=== PATIENT | female | born 1955 | race Caucasian/White ===

== ENCOUNTER → 2017-01-06 | Outpatient (CLI) | payer MEDICARE, OTHER ==
[~2017-01-06] MED LIST: ACHD5005 PO; ASP81TEC PO; CALC-706 PO; CYAN10007 PO; DIPH25TA82 PO; ERGO400C PO; EST.625T PO; GEMF600T3 PO; HCT25T PO; HYDR-229 PO; KCL20TCR PO; LOVA40TA45 PO; MULT-608 PO; NF-PREM2.5 PO; OMEG-12 PO; OMEP20TA2 PO; OXYC-12 PO; [UNRECOGNIZED DRUG - CODE] PO
--- NOTE | 2017-01-06 15:44 | Diagnostic Imaging Report ---
EXAMINATION: Three views of the right shoulder. INDICATION: Right shoulder pain. FINDINGS: No fracture, dislocation, or radiopaque foreign body. The acromioclavicular joint demonstrates mild superior osteophytes. No significant inferior osteophytes. The glenohumeral joint appears unremarkable. IMPRESSION: Mild degenerative change in the AC joint with no significant inferior osteophytes. Dictated by: Dictated on workstation # [id number]
== END ==
LOC: RAD 15:13
PROVIDERS: ATTEND Nurse Practitioner Family
DX: M25.511 Pain in right shoulder (principal)
CPT/HCPCS: 73030

== ENCOUNTER → 2017-06-10 | Outpatient (CLI) | payer OTHER ==
--- NOTE | 2017-06-11 19:12 | Diagnostic Imaging Report ---
Bilateral screening mammogram 2D views with tomosynthesis The current study was also evaluated with a Computer Aided Detection (CAD) system. Indication: Screening. No current complaints stated on the questionnaire. COMPARISON: 06/16/16 FINDINGS: The breasts are composed of heterogeneously dense parenchyma which may decrease mammographic sensitivity. Allowing for technique and positional differences, no suspicious change is seen. IMPRESSION: Dense breasts with no definite change. ACR BI-RADS Category 2: Benign findings. Result letter will be mailed to the patient. Note: At least 10% of breast cancer is not imaged by mammography. Dictated by: Dictated on workstation # [id number]
== END ==
LOC: RAD 14:30
PROVIDERS: ATTEND Nurse Practitioner Family
DX: Z12.31 Encounter for screening mammogram for malignant neoplasm of breast (principal)
CPT/HCPCS: 77067

== ENCOUNTER 2019-02-21 15:29 | Emergency (ER) | payer MEDICARE, OTHER ==
[~2019-02-21] VITALS: Ht 160 cm; Wt 99.8 kg
--- NOTE | 2019-02-21 16:06 | ED Lower Extremity ---
General Chief Complaint: Lower Extremity Stated Complaint: PAIN IN LEG CANT PUT ANY WEIGHT ON IT Nursing Triage Note: PATIENT STATES THAT SHE HAS PAIN IN HER RIGHT LEG THAT HAS BEEN AN ONGOING ISSUE. OF LAST NIGHT SHE HAS NOT BEEN ABLE TO BARE WEIGHT. SHE HAS TRIED MULTIPLE PAIN RELIEVERS WITH MINIMAL IMPROVEMENT. Nursing Sepsis Screen: No Definite Risk Source: patient Exam Limitations: no limitations History of Present Illness Date Seen by Provider: Feb 21, 2019 Time Seen by Provider: 16:06 Initial Comments 63-year-old female who presents to the emergency room with complaints of chronic right knee pain. She has had several steroid injections into the right knee over the last 2 years and has been using her 's meloxicam with minimal relief. She denies recent injury but has had increasing pain with attempting to bear weight. She presents with a prescription knee brace that was prescribed by her primary care provider. Onset: other (chronic) Pain/Injury Location: right knee Method of Injury: unknown Modifying Factors: Worse With Movement Allergies and Home Medications Allergies Coded Allergies: morphine (Unverified Allergy, Unknown, NAUSEA, 02/21/19) Home Medications Aspirin 81 Mg Tabec, 81 MG PO DAILY, (Reported) Calcium Carb/Vit D3/Mag11/Zinc 1 Each Tablet, 2 TAB PO DAILY, (Reported) Estrogen,Con/M-Progest Acet 1 Each Tablet, 1 TAB PO EVERY OTHER NIGHT, (Reported ) Hydrochlorothiazide 25 Mg Tab, 50 MG PO DAILY, (Reported) Hydrocodone Bit/Acetaminophen 1 Each Tablet, 1-2 EACH PO Q4H PRN for PAIN, ( Reported) Hydrocodone Bit/Acetaminophen 1 Tab Tab, 1 EACH PO Q4-6HR PRN for PAIN-MODERATE Prescribed by: XANDER REIS on 02/21/19 1701 Lovastatin 40 Mg Tablet, 80 MG PO DAILY, (Reported) Multivitamins 1 Tab Tablet, 1 TAB PO DAILY, (Reported) [place]-3/Dha/Epa/Fish Oil 1 Each Capsule.dr, 3,000 MG PO DAILY, (Reported) Omeprazole 20 Mg Tablet.dr, 20 MG PO DAILY, (Reported) Potassium Chloride 20 Meq Tabsr, 20 MEQ PO DAILY, (Reported) Patient Home Medication List Home Medication List Reviewed: Yes Review of Systems Constitutional: see HPI; No chills, No fever Musculoskeletal: see HPI, joint pain (right knee) All Other Systems Reviewed Negative Unless Noted: Yes Past Eatcyca-Pmdctr-Lykvdf Hx Past Med/Social Hx: Reviewed Nursing Past Med/Soc Hx Patient Social History Alcohol Use: Denies Use Recreational Drug Use: No Smoking Status: Never a Smoker 2nd Hand Smoke Exposure: No Recent Foreign Travel: No Contact w/Someone Who Travel: No Recent Infectious Disease Expo: No Recent Hopitalizations: No Physical Abuse: No Sexual Abuse: No Immunizations Up To Date Date of Influenza Vaccine: Aug 24, 2013 Past Medical History Surgeries: Yes Section, Gallbladder, Hysterectomy Respiratory: No Cardiac: No Neurological: Yes (CHRONIC FATIGUE SYNDROME) Reproductive Disorders: No Gastrointestinal: Yes Musculoskeletal: Yes (MUSCLE ACHES, CHRONIC FATIQUE SYNDROME) Endocrine: No Psychosocial: No Integumentary: No Blood Disorders: No Family Medical History Reviewed Nursing Family Hx Physical Exam Vital Signs Vital Signs - First Documented 02/21/19 15:38 Temp 98.8 Pulse 93 Resp 18 B/P (MAP) 147/68 (94) Pulse Ox 92 Capillary Refill : Less Than 3 Seconds Height, Weight, BMI Height: 5'3.00" Weight: 220lbs. 0oz. 99.253381kj; BMI Method:Stated General Appearance: WD/WN, no apparent distress Cardiovascular: normal peripheral pulses, regular rate, rhythm, no edema, no gallop, no JVD, no murmur Respiratory: chest non-tender, lungs clear, normal breath sounds, no respiratory distress, no accessory muscle use Knees: right knee pain, right knee soft tissue tenderness, right knee swelling Neurologic/Tendon: normal sensation, normal motor functions, normal tendon functions, responds to pain, no evidence tendon injury Neurologic/Psychiatric: alert, normal mood/affect, oriented x 3 Skin: normal color, warm/dry Progress/Results/Core Measures Results/Orders My Orders Orders - BROOKLYNCHELXANDER Knee, Right, 3 Views (02/21/19 16:05) Hydrocodone/Apap 5/325 Tablet (Lortab 5 (02/21/19 16:15) Methylprednisolone Acetate Inj (Depo-Med (02/21/19 17:15) Medications Given in ED Vital Signs/I&O 02/21/19 02/21/19 15:38 17:39 Temp 98.8 98.8 Pulse 93 93 Resp 18 18 B/P (MAP) 147/68 (94) 147/68 (94) Pulse Ox 92 92 Blood Pressure Mean: 94 Progress Progress Note : Time: 16:58 Progress Note I have seen and evaluated the patient. Her pain has improved after hydrocodone. Her imaging studies were discussed. She agrees with plan of care, plans for discharge, return precautions were given. Diagnostic Imaging Diagonstic Imaging: Xray Plain Films/CT/US/NM/MRI: knee Comments NAME: KAREN CASTILLO [facility] REC#: [id number] PT STATUS: REG ER : 1955 PHYSICIAN: XANDER REIS ADMIT DATE: 02/21/19/ER Signed Date of Exam: 02/21/19 KNEE, RIGHT, 3 VIEWS INDICATION: Right knee injury after a fall. FINDINGS: Three views of the right knee show no fracture, dislocation, or pathologic effusion. There are small osteophytes forming at the periphery of the articular surface. IMPRESSION: Mild degenerative changes of the right knee. No acute abnormality is seen. Dictated by: Dictated on workstation # [id number] Dict: 02/21/19 1639 Trans: 02/21/19 1714 Interpreted by: ADRYAN CAPELLAN MD Electronically signed by: ADRYAN CAPELLAN MD 02/21/19 1714 Reviewed: Reviewed by Me Departure Impression Primary Impression: Knee pain Qualified Codes: M25.561 - Pain in right knee; G89.29 - Other chronic pain Disposition: 01 HOME, SELF-CARE Condition: Stable/Unchanged Departure-Patient Inst. Decision time for Depature: 16:58 Referrals: ELSIE BROOKS DO (PCP) Primary Care Physician KIARA HERNANDEZ (Family) Primary Care Physician THANG VELASQUEZ DO Patient Instructions: Chronic Knee Pain (DC) Add. Discharge Instructions: Take medications as directed. Continue to wear your knee brace. Follow-up with your primary care provider within 1 week for recheck. Call tomorrow morning to schedule an appointment with an orthopedic surgeon of your choosing for follow- up. Dr. Velasquez is publication manager today for the 4 states I will provide his contact information for you. Return back to the emergency room for worsening symptoms or concerns as needed. All discharge instructions reviewed with patient and/or family. Voiced understanding. Scripts Hydrocodone Bit/Acetaminophen (Hydrocodone/Acetaminophen 5/325mg Tablet) 1 Tab Tab 1 EACH PO Q4-6HR PRN for PAIN-MODERATE MDD 10, #14 TAB Prov: XANDER REIS 02/21/19 XANDER REIS Feb 21, 2019 16:06
[2019-02-21] MEDS ORDERED: HYDROcodone/APAP 5 MG/325 MG (LORTAB) TAB PO ONE (16:15)
--- NOTE | 2019-02-21 16:42 | Diagnostic Imaging Report ---
INDICATION: Right knee injury after a fall. FINDINGS: Three views of the right knee show no fracture, dislocation, or pathologic effusion. There are small osteophytes forming at the periphery of the articular surface. IMPRESSION: Mild degenerative changes of the right knee. No acute abnormality is seen. Dictated by: Dictated on workstation # [id number]
[2019-02-21] MEDS ORDERED: ACHD5005 PO (17:01)
[2019-02-21] MEDS ORDERED: methylPREDNISolone 40 MG/ML (DEPO MEDROL) VIAL IM ONE (17:15)
[2019-02-21 17:39] VITALS: BP 147/68
== END 2019-02-21 17:39 | disposition home or self-care (01) ==
LOC: EDUNIT# 15:29 → ER 15:33
DX: M25.561 Pain in right knee (principal); Z88.5 Allergy status to narcotic agent; Z79.82 Long term (current) use of aspirin; Z90.710 Acquired absence of both cervix and uterus; Z98.890 Other specified postprocedural states
CPT/HCPCS: 73562

== ENCOUNTER 2019-11-28 10:59 | Observation (INO) | payer SELFPAY ==
[~2019-11-28] VITALS: Ht 160 cm; Wt 108.3 kg
[2019-11-28] MEDS ORDERED: NS IV 1000 ML 1,000 ML IV SCH (11:13)
--- NOTE | 2019-11-28 11:22 | ED Respiratory ---
General Stated Complaint: SHALLOW BREATHING;DIZZINESS;HEADACHE Source: patient, family Exam Limitations: no limitations History of Present Illness Date Seen by Provider: Nov 28, 2019 Time Seen by Provider: 11:03 Initial Comments Patient resents to ER by private conveyance from Dr. Beckham's office at [facility]. She has been having about for 5 days progressively worsening shortness of breath loose cough that is productive without fever. She does not use oxygen at baseline or have any history of lung disease or heart disease. He isn't having any chest pain nausea fever or chills. Dr. Beckham called ahead that initially 94% after breathing treatment it went down to 87%. She would like the patient evaluated for potential admission in the ER. Patient is not diabetic. At the clinic the patient had a negative flu swab and left lower infiltrate consistent with pneumonia. Allergies and Home Medications Allergies Coded Allergies: morphine (Unverified Allergy, Unknown, NAUSEA, 02/21/19) Home Medications Aspirin 81 Mg Tabec, 81 MG PO DAILY, (Reported) Calcium Carb/Vit D3/Mag11/Zinc 1 Each Tablet, 2 TAB PO DAILY, (Reported) Estrogen,Con/M-Progest Acet 1 Each Tablet, 1 TAB PO EVERY OTHER NIGHT, (Reported) Hydrochlorothiazide 25 Mg Tab, 50 MG PO DAILY, (Reported) Hydrocodone Bit/Acetaminophen 1 Each Tablet, 1-2 EACH PO Q4H PRN for PAIN, (Reported) Hydrocodone Bit/Acetaminophen 1 Tab Tab, 1 EACH PO Q4-6HR PRN for PAIN-MODERATE Prescribed by: XANDER REIS on 02/21/19 1701 Lovastatin 40 Mg Tablet, 80 MG PO DAILY, (Reported) Multivitamins 1 Tab Tablet, 1 TAB PO DAILY, (Reported) [place]-3/Dha/Epa/Fish Oil 1 Each Capsule.dr, 3,000 MG PO DAILY, (Reported) Omeprazole 20 Mg Tablet.dr, 20 MG PO DAILY, (Reported) Potassium Chloride 20 Meq Tabsr, 20 MEQ PO DAILY, (Reported) Patient Home Medication List Home Medication List Reviewed: Yes Review of Systems Review of Systems Constitutional: No chills, No diaphoresis, No fever; malaise EENTM: ear pain (left); No ear discharge, No blurred vision, No double vision Respiratory: cough, phlegm, short of breath, wheezing Cardiovascular: No chest pain, No Hx of Intervention, No palpitations Gastrointestinal: No abdominal pain, No nausea, No vomiting Genitourinary: No discharge, No dysuria Musculoskeletal: No back pain, No joint pain Skin: No pruritus, No rash Psychiatric/Neurological: Denies Headache, Denies Numbness, Denies Paresthesia All Other Systems Reviewed Negative Unless Noted: Yes Past Tbtgdnk-Ohxtlr-Jsryof Hx Patient Social History Alcohol Use: Denies Use Recreational Drug Use: No Smoking Status: Never a Smoker 2nd Hand Smoke Exposure: No Recent Hopitalizations: No Immunizations Up To Date Date of Influenza Vaccine: Aug 24, 2013 Past Medical History Surgeries: Yes Section, Gallbladder, Hysterectomy Respiratory: No Cardiac: No Neurological: Yes (CHRONIC FATIGUE SYNDROME) Reproductive Disorders: No Gastrointestinal: Yes Musculoskeletal: Yes (MUSCLE ACHES, CHRONIC FATIQUE SYNDROME) Endocrine: No Psychosocial: No Integumentary: No Blood Disorders: No Physical Exam Capillary Refill : Height: 5'3.00" Weight: 220lbs. 0oz. 99.004872ra; BMI Method:Stated General Appearance: WD/WN, no apparent distress Eyes: Bilateral Eye Normal Inspection, Bilateral Eye PERRL, Bilateral Eye EOMI HEENT: PERRL/EOMI, normal ENT inspection, TM abnormal (L) (clear mucoid effusion with minor injection noted.) Neck: non-tender, full range of motion, supple, normal inspection Respiratory: chest non-tender, no respiratory distress, no accessory muscle use, rhonchi Cardiovascular: normal peripheral pulses, regular rate, rhythm Extremities: normal range of motion, normal inspection, no pedal edema, normal capillary refill Neurologic/Psychiatric: no motor/sensory deficits, alert, normal mood/affect, oriented x 3 Skin: normal color, warm/dry Progress/Results/Core Measures Suspected Sepsis SIRS Temperature: Pulse: Respiratory Rate: Laboratory Tests 11/28/19 11:14: White Blood Count 11.5H Blood Pressure / Mean: Laboratory Tests 11/28/19 11:14: Creatinine 0.77, Platelet Count 352, Total Bilirubin 0.5 Results/Orders Lab Results Laboratory Tests Test 11/28/19 11:14 11/28/19 12:39 Range/Units White Blood Count 11.5 H 4.3-11.0 10^3/uL Red Blood Count 4.58 4.35-5.85 10^6/uL Hemoglobin 14.0 11.5-16.0 G/DL Hematocrit 42 35-52 % Mean Corpuscular Volume 91 80-99 FL Mean Corpuscular Hemoglobin 31 25-34 PG Mean Corpuscular Hemoglobin Concent 34 32-36 G/DL Red Cell Distribution Width 14.0 10.0-14.5 % Platelet Count 352 130-400 10^3/uL Mean Platelet Volume 8.8 7.4-10.4 FL Neutrophils (%) (Auto) 81 H 42-75 % Lymphocytes (%) (Auto) 11 L 12-44 % Monocytes (%) (Auto) 7 0-12 % Eosinophils (%) (Auto) 1 0-10 % Basophils (%) (Auto) 0 0-10 % Neutrophils # (Auto) 9.3 H 1.8-7.8 X 10^3 Lymphocytes # (Auto) 1.2 1.0-4.0 X 10^3 Monocytes # (Auto) 0.8 0.0-1.0 X 10^3 Eosinophils # (Auto) 0.2 0.0-0.3 10^3/uL Basophils # (Auto) 0.0 0.0-0.1 10^3/uL Sodium Level 141 135-145 MMOL/L Potassium Level 3.1 L 3.6-5.0 MMOL/L Chloride Level 101 98-107 MMOL/L Carbon Dioxide Level 26 21-32 MMOL/L Anion Gap 14 5-14 MMOL/L Blood Urea Nitrogen 11 7-18 MG/DL Creatinine 0.77 0.60-1.30 MG/DL Estimat Glomerular Filtration Rate > 60 BUN/Creatinine Ratio 14 Glucose Level 108 H 70-105 MG/DL Calcium Level 9.2 8.5-10.1 MG/DL Corrected Calcium 9.1 8.5-10.1 MG/DL Total Bilirubin 0.5 0.1-1.0 MG/DL Aspartate Amino Transf (AST/SGOT) 26 5-34 U/L Alanine Aminotransferase (ALT/SGPT) 33 0-55 U/L Alkaline Phosphatase 124 40-136 U/L C-Reactive Protein High Sensitivity 1.41 H 0.00-0.50 MG/DL Total Protein 7.2 6.4-8.2 GM/DL Albumin 4.1 3.2-4.5 GM/DL Blood Gas Puncture Site LT RAD Blood Gas Patient Temperature 36.9 Arterial Blood pH 7.45 H 7.37-7.43 Arterial Blood Partial Pressure CO2 40 35-45 MMHG Arterial Blood Partial Pressure O2 64 L 79-93 MMHG Arterial Blood HCO3 28 H 23-27 MMOL/L Arterial Blood Total CO2 28.7 21.0-31.0 MMOL/L Arterial Blood Oxygen Saturation 91 L 94-100 % Arterial Blood Base Excess 3.6 H -2.5-2.5 MMOL/L Efren Test YES-POS Blood Gas Ventilator Setting NO Blood Gas Inspired Oxygen ROOM AIR My Orders Orders - HAN VILLA Ed Iv/Invasive Line Start (11/28/19 11:13) Ns Iv 1000 Ml (Sodium Chloride 0.9%) (11/28/19 11:13) Cbc With Automated Diff (11/28/19 11:13) Comprehensive Metabolic Panel (11/28/19 11:13) Hs C Reactive Protein (11/28/19 11:13) Chest 1 View, Ap/Pa Only (11/28/19 11:13) Blood Culture (11/28/19 11:13) Ceftriaxone For Iv Use (Rocephin For I (11/28/19 11:30) Azithromycin Injection (Zithromax Inject (11/28/19 11:30) Arterial Blood Gas (11/28/19 12:41) Medications Given in ED Current Medications Medications Dose Ordered Sig/Gray Route Start Time Stop Time Status Last Admin Dose Admin Azithromycin 500 mg/Sodium Chloride 250 ml @ 250 mls/hr ONCE ONCE IV 11/28/19 11:30 11/28/19 12:29 DC 11/28/19 12:26 250 MLS/HR Ceftriaxone Sodium 1000 mg/ Sterile Water 10 ml @ 200 mls/hr ONCE ONCE IV 11/28/19 11:30 11/28/19 11:32 DC 11/28/19 12:25 200 MLS/HR Vital Signs/I&O Capillary Refill : Progress Note : Time: 11:21 Progress Note Chest x-ray, blood cultures and lab. She is not tachycardic or hypoxic at this time. We'll get an ABG. Potentially the breathing treatments are helping her with hypoxia as per the outpatient doctors report she may still be okay to stay out patient. Rocephin and azithromycin. Diagnostic Imaging Diagonstic Imaging: Xray Plain Films/CT/US/NM/MRI: chest (1v) Comments [facility] [place], [place] NAME: KAREN CASTILLO [facility] REC#: [id number] PT STATUS: REG ER : 1955 PHYSICIAN: HAN VILLA MD ADMIT DATE: 11/28/19/ER Draft Date of Exam:11/28/19 CHEST 1 VIEW, AP/PA ONLY INDICATION: Dizziness and headache. TIME OF EXAM: 11:54 a.m. COMPARISON: No prior studies are available for comparison. FINDINGS: The heart size is normal. The pulmonary vascularity is unremarkable. The lungs are clear. No infiltrate, effusion or pneumothorax is detected. IMPRESSION: No acute cardiopulmonary process is detected. Dictated on workstation # [id number] Dict: 11/28/19 1201 Trans: 11/28/19 1206 [id number] Interpreted by: SHARITA HAHN MD Electronically signed by: Reviewed: Reviewed by Me Departure Communication (Admissions) Time/Spoke to Admitting Phy: 13:10 Discussed the case with Dr. Evangelista and she agrees to observe the patient. She would like some steroids given. She agrees with antibiotic selection. Impression Primary Impression: Pneumonia Qualified Codes: J18.9 - Pneumonia, unspecified organism Additional Impression: Hypoxia Disposition: 09 ADMITTED INPATIENT Condition: Stable Admissions Decision to Admit Reason: Admit from ER (General) Decision to Admit/Date: Nov 28, 2019 Time/Decision to Admit Time: 12:59 Departure-Patient Inst. Referrals: ELSIE BROOKS DO (PCP) Primary Care Physician KIARA HERNANDEZ (Family) Primary Care Physician HAN VILLA Nov 28, 2019 11:22
[2019-11-28 11:23] LABS: BASOPHILS % (AUTO) 0 % (0-10); EOSINOPHILS # (AUTO) 0.2 10^3/uL (0.0-0.3); EOSINOPHILS % (AUTO) 1 % (0-10); HEMATOCRIT 42 % (35-52); LYMPHOCYTES # (AUTO) 1.2 X 10^3 (1.0-4.0); LYMPHOCYTES % (AUTO) 11 % (12-44); MEAN CORPUSCULAR HEMOGLOBIN 31 PG (25-34); MEAN CORPUSCULAR HGB CONC 34 G/DL (32-36); MEAN CORPUSCULAR VOLUME 91 FL (80-99); MEAN PLATELET VOLUME 8.8 FL (7.4-10.4); MONOCYTES # (AUTO) 0.8 X 10^3 (0.0-1.0); MONOCYTES % (AUTO) 7 % (0-12); NEUTROPHILS # (AUTO) 9.3 X 10^3 (1.8-7.8); NEUTROPHILS % (AUTO) 81 % (42-75); PLATELET COUNT 352 10^3/uL (130-400); WHITE BLOOD COUNT 11.5 10^3/uL (4.3-11.0)
[2019-11-28] MEDS ORDERED: AZITHROMYCIN INJECTION 500 MG in NS (IVPB) 250 ML IV ONE (11:30)
[2019-11-28] MEDS ORDERED: cefTRIAXone FOR IV USE 1,000 MG in WATER (STERILE) FOR INJECTION 10 ML IV ONE (11:30)
[2019-11-28 11:36] LABS: ALANINE AMINOTRANSFERASE 33 U/L (0-55); ALBUMIN 4.1 GM/DL (3.2-4.5); ALKALINE PHOSPHATASE 124 U/L (40-136); BILIRUBIN,TOTAL 0.5 MG/DL (0.1-1.0); BUN/CREATININE RATIO 14; CALCIUM 9.2 MG/DL (8.5-10.1); CARBON DIOXIDE 26 MMOL/L (21-32); CHLORIDE 101 MMOL/L (98-107); CREATININE SERUM 0.77 MG/DL (0.60-1.30); GFR ESTIMATED > 60; GLUCOSE 108 MG/DL (70-105); POTASSIUM 3.1 MMOL/L (3.6-5.0); SODIUM 141 MMOL/L (135-145); TOTAL PROTEIN 7.2 GM/DL (6.4-8.2)
--- NOTE | 2019-11-28 12:06 | Diagnostic Imaging Report ---
INDICATION: Dizziness and headache. TIME OF EXAM: 11:54 a.m. COMPARISON: No prior studies are available for comparison. FINDINGS: The heart size is normal. The pulmonary vascularity is unremarkable. The lungs are clear. No infiltrate, effusion or pneumothorax is detected. IMPRESSION: No acute cardiopulmonary process is detected. Dictated by: Dictated on workstation # [id number]
[2019-11-28 12:48] LABS: ABG BASE EXCESS 3.6 MMOL/L (-2.5-2.5); ABG OXYGEN SATURATION 91 % (94-100); ABG PCO2 40 MMHG (35-45); ABG PH 7.45 (7.37-7.43); ABG PO2 64 MMHG (79-93); ABG TCO2 28.7 MMOL/L (21.0-31.0); ALLENS TEST YES-POS; INSPIRED O2 ROOM AIR; PATIENT TEMP 36.9; VENTILATOR NO
[2019-11-28 14:20] VITALS: BP 140/65
[2019-11-28 14:51] VITALS: BP 105/88
[2019-11-28] MEDS ORDERED: OMEP20TA7 PO (16:11)
[2019-11-28] MEDS ORDERED: CYAN-41 PO (16:11)
[2019-11-28] MEDS ORDERED: CALC-927 PO (16:11)
[2019-11-28] MEDS ORDERED: ASPI-983 PO (16:11)
[2019-11-28] MEDS ORDERED: OMEG-160 PO (16:11)
[2019-11-28] MEDS ORDERED: L.AC1CAP6 PO (16:11)
[2019-11-28] MEDS ORDERED: METF500T8 PO (16:11)
[2019-11-28] MEDS ORDERED: PREG75CA PO (16:11)
[2019-11-28] MEDS ORDERED: CHOL10003 PO (16:11)
[2019-11-28] MEDS ORDERED: HYDR50TA3 PO (16:11)
[2019-11-28] MEDS ORDERED: ROSU40TA PO (16:11)
--- NOTE | 2019-11-28 16:12 | NUR ---
PATIENT LISTED HER MEDICATIONS TO ME. I CALLED [facility] TO VERIFY STRENGTHS AND LAST FILL DATES. [facility] FILLED: 11-03-19 LYRICA 75MG TID #84 10-31-19 METFORMIN ER 500MG BID #60 10-31-19 [id number] DAILY #90 10-31-19 HCTZ 50MG DAILY #30 (STATES SHE TAKES 1/2 TAB DAILY) 09-11-18 OMEPRAZOLE 20MG DAILY (I PUT THIS IN OTC) OTC MEDS: VITAMIN D 2 DAILY VITAMIN B12 DAILY FISH OIL 2 DAILY PROBIOTIC DAILY CALCIUM/MAGNESIUM/ZINC 3 DAILY ASPIRIN 81MG DAILY OMEPRAZOLE DAILY
[2019-11-28 16:37] VITALS: BP 119/58
[2019-11-28] MEDS ORDERED: RT-ALBUTEROL SULF 2.5 MG/3 ML PRE-MIX VIAL INH PRN (17:00)
[2019-11-28] MEDS ORDERED: ONDANSETRON 4 MG/2 ML (SDV) Z0FRAN IV PRN (17:30)
[2019-11-28] MEDS: methylPREDNISolone 40 MG/ML (Solu-MEDROL) VIAL IV SCH (17:42)
[2019-11-28] MEDS ORDERED: CATHETER FLUSH 10 ML SYR IV PRN (17:45)
[2019-11-28] MEDS: RT-ALBUTEROL SULF 2.5 MG/3 ML PRE-MIX VIAL INH SCH (19:42)
[2019-11-28] MEDS ORDERED: ONDANSETRON 4 MG/2 ML (SDV) Z0FRAN IVP PRN (20:00)
[2019-11-28] MEDS ORDERED: ALPRAZolam 0.25 MG (XANAX) TAB PO PRN (20:00)
[2019-11-28] MEDS ORDERED: CALCIUM CARBONATE 500 MG (TUMS) TAB.CHEW PO PRN (20:00)
[2019-11-28] MEDS ORDERED: diphenhydrAMINE 25 MG TAB (BENADRYL) PO PRN (20:00)
[2019-11-28] MEDS ORDERED: DOCUSATE SODIUM 100 MG (COLACE) CAP PO PRN (20:00)
[2019-11-28] MEDS ORDERED: LOPERAMIDE 2 MG (IMODIUM) TABLET PO PRN (20:00)
[2019-11-28] MEDS ORDERED: HYDROcodone/APAP 5 MG/325 MG (LORTAB) TAB PO PRN (20:00)
[2019-11-28] MEDS ORDERED: MELATONIN 3 MG TABLET PO PRN (20:00)
[2019-11-28] MEDS ORDERED: ACETAMINOPHEN 500 MG TAB (TYLENOL) PO PRN (20:00)
[2019-11-28 20:03] VITALS: BP 127/92
[2019-11-28] MEDS: SENNA W/DOCUSATE (SENOKOT S) TABLET PO SCH (21:31)
[2019-11-28] MEDS: ENOXAPARIN 40 MG/0.4 ML (LOVENOX) SYR SC SCH (22:17)
[2019-11-28] MEDS: CATHETER FLUSH 10 ML SYR IV SCH (22:20)
[2019-11-29 00:15] VITALS: BP 127/58
[2019-11-29 03:34] VITALS: BP 143/62
[2019-11-29 05:23] LABS: BASOPHILS % (AUTO) 0 % (0-10); EOSINOPHILS % (AUTO) 0 % (0-10); HEMATOCRIT 38 % (35-52); HEMOGLOBIN 12.6 G/DL (11.5-16.0); LYMPHOCYTES # (AUTO) 0.6 X 10^3 (1.0-4.0); LYMPHOCYTES % (AUTO) 8 % (12-44); MEAN CORPUSCULAR HEMOGLOBIN 31 PG (25-34); MEAN CORPUSCULAR HGB CONC 34 G/DL (32-36); MEAN CORPUSCULAR VOLUME 91 FL (80-99); MEAN PLATELET VOLUME 9.1 FL (7.4-10.4); MONOCYTES # (AUTO) 0.1 X 10^3 (0.0-1.0); MONOCYTES % (AUTO) 1 % (0-12); NEUTROPHILS # (AUTO) 7.5 X 10^3 (1.8-7.8); NEUTROPHILS % (AUTO) 91 % (42-75); PLATELET COUNT 353 10^3/uL (130-400); RED CELL DISTRIBUTION WIDTH 13.9 % (10.0-14.5); WHITE BLOOD COUNT 8.2 10^3/uL (4.3-11.0)
[2019-11-29 05:49] LABS: BUN/CREATININE RATIO 16; CALCIUM 9.1 MG/DL (8.5-10.1); CARBON DIOXIDE 24 MMOL/L (21-32); CHLORIDE 103 MMOL/L (98-107); CREATININE SERUM 0.69 MG/DL (0.60-1.30); GFR ESTIMATED > 60; GLUCOSE 164 MG/DL (70-105); POTASSIUM 3.3 MMOL/L (3.6-5.0); SODIUM 141 MMOL/L (135-145)
[2019-11-29] MEDS: CATHETER FLUSH 10 ML SYR IV SCH ×2 (06:03→11:18)
[2019-11-29] MEDS: methylPREDNISolone 40 MG/ML (Solu-MEDROL) VIAL IV SCH ×3 (06:03→11:18)
[2019-11-29 08:00] VITALS: BP 119/56
[2019-11-29] MEDS: ENOXAPARIN 40 MG/0.4 ML (LOVENOX) SYR SC SCH (08:02)
[2019-11-29] MEDS: SENNA W/DOCUSATE (SENOKOT S) TABLET PO SCH (08:03)
--- NOTE | 2019-11-29 08:48 | Diagnostic Imaging Report ---
INDICATION: Shortness of air. Time of exam: 8:36 AM Correlation is made with prior chest from 11/28/2019. The heart size is normal. There is some increased density in the left base suggestive of infiltrate. Right lung is clear. No effusion or pneumothorax is seen. IMPRESSION: Findings suggestive of a patchy left basilar pneumonia. Dictated by: Dictated on workstation # [id number]
[2019-11-29] MEDS ORDERED: AZITHROMYCIN 250 MG TAB (ZITHROMAX) PO SCH (09:00)
[2019-11-29] MEDS ORDERED: ASPIRIN 81 MG CHEW (CHILDREN'S ASA) PO SCH (09:00)
[2019-11-29] MEDS ORDERED: PANTOPRAZOLE 20 MG TABLET (PROTONIX) PO SCH (09:00)
[2019-11-29] MEDS ORDERED: HYDROCHLOROTHIAZIDE 25 MG (HCTZ) TAB PO SCH (09:00)
[2019-11-29] MEDS ORDERED: cefTRIAXone 1,000 MG/SWFI 10 ML IV PUSH IV SCH ×2 (09:00)
[2019-11-29] MEDS: RT-ALBUTEROL SULF 2.5 MG/3 ML PRE-MIX VIAL INH SCH (09:51)
--- NOTE | 2019-11-29 11:03 | Short Stay Summary-Hospitalist ---
History of Present Illness HPI/Chief Complaint Chief complaint: Pneumonia with hypoxia History of present illness: This is a 64-year-old white female clinic patient [facility] who was sent to the ER due to hypoxia and worsening respiratory status. She was found to have low O2 sat resolved with supplement of oxygen and nebulized treatments and found to have left lower lobe pneumonia in need of antibiotics and a short stay observation status. At this current time patient does report a cough but otherwise feels good enough to go home. Her O2 sat is back to normal and does not require oxygen. Source: patient, family, RN/MD, old records Exam Limitations: no limitations Date Seen 11/29/19 Time Seen by a Provider: 09:30 Attending Physician Aida Patrick DO PCP Kathryn Graham DO Referring Physician Date of Admission Nov 28, 2019 at 13:53 Home Medications & Allergies Home Medications Reviewed patient Home Medication Reconciliation performed by pharmacy medication reconciliations accessibility lift technician and/or nursing. Patients Allergies have been reviewed. Allergies Allergies Coded Allergies morphine (Unverified Allergy, Unknown, NAUSEA, 02/21/19) Past Ueyuaxe-Tcoxjr-Qicqpz Hx Past Med/Social Hx: Reviewed Nursing Past Med/Soc Hx, Reviewed and Corrections made Patient Social History Marrital Status: (48 yrs 14yo) Employed/Student: retired Alcohol Use: Denies Use Recreational Drug Use: No Smoking Status: Never a Smoker 2nd Hand Smoke Exposure: No Recent Foreign Travel: No Contact w/other who traveled: No Recent Hopitalizations: No Recent Infectious Disease Expo: No Immunizations Up To Date Tetanus Booster (TDap): Unknown Pediatric: Yes Date of Pneumonia Vaccine: Aug 10, 2019 Date of Influenza Vaccine: Aug 10, 2019 Past Medical History Surgeries: Section, Gallbladder, Hysterectomy Respiratory: Pneumonia Cardiac: High Cholesterol, Hypertension Neurological: Neuropathy restless leg syndrome Reproductive: No Genitourinary: Bladder Infection Gastrointestinal: Gastroesophageal Reflux, Chronic Constipation Musculoskeletal: Arthritis Endocrine: Diabetes, Non-Insulin dep History of Blood Disorders: No Review of Systems Constitutional: see HPI, dizziness, malaise, weakness Respiratory: cough, dyspnea on exertion Physical Exam Physical Exam Vital Signs Vital Signs - First Documented 11/28/19 11/28/19 11/28/19 11:06 13:16 14:51 Temp 36.9 Pulse 96 Resp 17 B/P (MAP) 131/88 (102) Pulse Ox 91 O2 Delivery Room Air O2 Flow Rate 2.00 FiO2 21 Capillary Refill : Less Than 3 SecondsLess Than 3 Seconds Height, Weight, BMI Height: 5'3.00" Weight: 220lbs. 0oz. 99.284320nq; 42.30 BMI Method:Stated General Appearance: No Apparent Distress, WD/WN Eyes: Bilateral Eye Normal Inspection, Bilateral Eye PERRL, Bilateral Eye EOMI HEENT: PERRL/EOMI, Normal ENT Inspection, Pharynx Normal Neck: Full Range of Motion, Normal Inspection, Non Tender, Supple, Carotid Bruit Respiratory: Chest Non Tender, Lungs Clear, Normal Breath Sounds, No Accessory Muscle Use, No Respiratory Distress Cardiovascular: Regular Rate, Rhythm, No Edema, No Gallop, No JVD, No Murmur, Normal Peripheral Pulses Gastrointestinal: Normal Bowel Sounds, No Organomegaly, No Pulsatile Mass, Non Tender, Soft Back: Normal Inspection, No CVA Tenderness, No Vertebral Tenderness Extremity: Normal Capillary Refill, Normal Inspection, Normal Range of Motion, Non Tender, No Calf Tenderness, No Pedal Edema Neurologic/Psychiatric: Alert, Oriented x3, No Motor/Sensory Deficits, Normal Mood/Affect Skin: Normal Color, Warm/Dry Lymphatic: No Adenopathy Results Results/Procedures Labs Laboratory Tests 11/28/19 11:14 11/29/19 04:30 Patient resulted labs reviewed. Short Stay Diagnosis Discharge Diagnosis-Short Stay Admission Diagnosis Assessment: Pneumonia left lower lobe Hypoxia now resolved Diabetes mellitus Hyperlipidemia Neuropathy Final Discharge Diagnosis Assessment: Pneumonia left lower lobe Hypoxia now resolved Diabetes mellitus Hyperlipidemia Neuropathy Conclusion Plan Plan: DC home Monitor closely Antibiotics Maxwell Richards Diagnosis/Problems Diagnosis/Problems (1) Pneumonia Status: Acute Qualifiers: Qualified Codes: J18.9 - Pneumonia, unspecified organism (2) Hypoxia Status: Acute Clinical Quality Measures DVT/VTE Risk/Contraindication: Risk Factor Score Per Nursin RFS Level Per Nursing on Admit: 2=Moderate AIDA PATRICK DO Nov 29, 2019 11:02
[2019-11-29] MEDS ORDERED: BENZ-13 PO (11:05)
[2019-11-29] MEDS ORDERED: AZIT250T PO (11:05)
[2019-11-29] MEDS ORDERED: CEFD300C3 PO (11:05)
[2019-11-29] MEDS ORDERED: KCL 10 MEQ TAB (MICRO K) PO NR (11:13)
[2019-11-29 12:09] VITALS: BP 110/68
[2019-11-29 12:50] VITALS: BP 119/56
== END 2019-11-29 12:50 | disposition home or self-care (01) ==
LOC: EDUNIT# 10:59 → ER 11:01 → 4TH 13:53
PROVIDERS: ADMIT Internal Medicine; ATTEND Internal Medicine
DX: J18.9 Pneumonia, unspecified organism (principal); R09.02 Hypoxemia; E78.00 Pure hypercholesterolemia, unspecified; I10 Essential (primary) hypertension; E11.42 Type 2 diabetes mellitus with diabetic polyneuropathy; G25.81 Restless legs syndrome; K21.9 Gastro-esophageal reflux disease without esophagitis; K59.09 Other constipation; M19.90 Unspecified osteoarthritis, unspecified site; Z90.49 Acquired absence of other specified parts of digestive tract; Z90.710 Acquired absence of both cervix and uterus; Z79.4 Long term (current) use of insulin; Z88.5 Allergy status to narcotic agent
CPT/HCPCS: 36415; 36600; 71045; 71046; 80048; 80053; 82805; 85025; 86141; 87040; 94640; 94664; 94760; 96361; 96365; 96375; 96376; G0378

== ENCOUNTER 2022-08-09 07:02 | Emergency (ER) | payer SELFPAY ==
[~2022-08-09] VITALS: Ht 160 cm; Wt 108.3 kg
[~2022-08-09 07:02] MED LIST changes: +ASPI-1238 PO; +AZIT250T PO; +BENZ-13 PO; +CALC-927 PO; +CEFD300C3 PO; +CHOL10003 PO; +CYAN-41 PO; +HYDR50TA6 PO; +L.AC1CAP6 PO; +METF-865 PO; +OMEG-160 PO; +OMEP20TA56 PO; +PREG75CA PO; +ROSU40TA PO
[2022-08-09] MEDS ORDERED: ONDANSETRON 4 MG/2 ML (SDV) Z0FRAN IVP ONE ×2 (08:30→11:15)
[2022-08-09 08:53] LABS: BASOPHILS % (AUTO) 1 % (0-10); EOSINOPHILS # (AUTO) 0.1 10^3/uL (0.0-0.3); EOSINOPHILS % (AUTO) 1 % (0-10); HEMATOCRIT 37 % (35-52); HEMOGLOBIN 12.3 g/dL (11.5-16.0); LYMPHOCYTES % (AUTO) 12 % (12-44); MEAN CORPUSCULAR HEMOGLOBIN 26 pg (25-34); MEAN CORPUSCULAR HGB CONC 33 g/dL (32-36); MEAN CORPUSCULAR VOLUME 79 fL (80-99); MEAN PLATELET VOLUME 8.6 fL (9.0-12.2); MONOCYTES # (AUTO) 0.8 10^3/uL (0.0-1.0); MONOCYTES % (AUTO) 10 % (0-12); NEUTROPHILS # (AUTO) 6.4 10^3/uL (1.8-7.8); NEUTROPHILS % (AUTO) 76 % (42-75); PLATELET COUNT 305 10^3/uL (130-400); WHITE BLOOD COUNT 8.4 10^3/uL (4.3-11.0)
[2022-08-09 09:06] LABS: CALCIUM 9.4 MG/DL (8.5-10.1)
[2022-08-09 09:11] LABS: CREATININE SERUM 0.85 MG/DL (0.60-1.30)
[2022-08-09] MEDS ORDERED: NS IV 1000 ML 1,000 ML IV STA (09:20)
[2022-08-09] MEDS ORDERED: HOLD METFORMIN - RECEIVED CONTRAST 20 ML VIAL IV SCH (09:30)
[2022-08-09] MEDS ORDERED: CATHETER FLUSH 10 ML SYR IV PRN (09:30)
[2022-08-09] MEDS ORDERED: POTASSIUM CL 10MEQ/50ML IVPB 50 ML IV ONE (09:30)
[2022-08-09] MEDS ORDERED: NS 100 ML (IVPB) BAG IV ONE (09:30)
[2022-08-09] MEDS ORDERED: IOHEXOL 350 MG/ML 100 ML (OMNIPAQUE 350) VIAL IV ONE (09:30)
--- NOTE | 2022-08-09 10:03 | Diagnostic Imaging Report ---
PROCEDURE: CT neck soft tissue with contrast. TECHNIQUE: Multiple contiguous axial images were obtained through the neck after the administration of contrast. Auto Exposure Controls were utilized during the CT exam to meet ALARA standards for radiation dose reduction. INDICATION: Dental/neck abscess. FINDINGS: The visualized intracranial structures are unremarkable. The globes and intraorbital structures are unremarkable. Sinuses and mastoid air cells are clear. The nasopharyngeal, oral pharyngeal and hypopharyngeal tissues are symmetrical without mass effect. The parotid, submandibular and thyroid glands normal in appearance. The lung apices are clear. Major vascular structures of the neck enhance in a normal fashion. There is no dissection stenosis or occlusion. There appear to be codominant vertebral arteries. There is some soft tissue induration and inflammatory change about the body of the mandible on the left. This extends caudally in the submandibular region where there is a 1.6 cm lymph node. There appears to be a missing premolar. There is also some rather diffuse induration along the caudal aspect of the deep lobe of the left parotid gland. No discrete fluid collection is appreciated to suggest abscess. The prevertebral soft tissues are within normal limits. There are some degenerative changes in the cervical spine. Epiglottis is unremarkable. Tongue bases are unremarkable. IMPRESSION: Soft tissue induration and inflammatory change about the body of the mandible on the left. This extends into the deep parotid space caudally as well as down into the anterior left neck. There is a 1.6 cm lymph node in the submental region on the left. No discrete fluid collections appreciated to suggest abscess. There is a missing pre-molar in the left mandible. Dictated by: Dictated on workstation # [id number]
--- NOTE | 2022-08-09 10:17 | ED EENT ---
History of Present Illness General Chief Complaint: Dental Problems/Pain Stated Complaint: POSS DENTAL INFECTION Nursing Triage Note: PT HAS LT LOWER DENTAL PAIN, WAS SEEN THURSDAY AT [facility] AND GIVEN ABX, WOKE UP WITH FACE SWOLLEN WORSE THAN IT WAS THURSDAY Source: patient Exam Limitations: no limitations History of Present Illness Date Seen by Provider: Aug 09, 2022 Time Seen by Provider: 07:46 Allergies and Home Medications Allergies Coded Allergies: morphine (Unverified Allergy, Unknown, NAUSEA, 02/21/19) Patient Home Medication List Aspirin (Aspirin EC) 81 Mg Tablet.dr, 81 MG PO DAILY, (Reported) Entered as Reported by: SHRAVAN BRIDGES on 11/28/19 1611 Azithromycin (Zithromax) 250 Mg Tablet, 250 MG PO DAILY Prescribed by: SASHA PATRICK on 11/29/19 1105 Benzonatate (Tessalon Perle) 100 Mg Capsule, 100 MG PO Q6H Prescribed by: SASHA PATRICK on 11/29/19 1105 Calcium Carb/Mag Ox/Zinc Sulf (Ivxpsrk-Pxisptqwe-Edek Tablet) 1 Each Tablet, 3 TAB PO DAILY, (Reported) Entered as Reported by: SHRAVAN BRIDGES on 11/28/19 1611 Cefdinir (Cefdinir) 300 Mg Capsule, 300 MG PO BID Prescribed by: SASHA PATRICK on 11/29/19 1105 Cholecalciferol (Vitamin D3) (Vitamin D3) 1,000 Unit Tablet, 2,000 UNIT PO DAILY, (Reported) Entered as Reported by: SHRAVAN BRIDGES on 11/28/19 1611 Clindamycin HCl (Clindamycin HCl) 300 Mg Capsule, 300 MG PO QID Prescribed by: JULITO OLIVEROS on 08/09/22 1214 Cyanocobalamin (Vitamin B-12) (Vitamin B-12) 1,000 Mcg Tablet, 1,000 MCG PO DAILY, (Reported) Entered as Reported by: SHRAVAN BRIDGES on 11/28/19 1611 Hydrochlorothiazide (Hydrochlorothiazide) 50 Mg Tablet, 25 MG PO DAILY, (Reported) Entered as Reported by: SHRAVAN BRIDGES on 11/28/19 1611 L.acidoph & Paracasei,B.lactis (Probiotic) 1 Each Capsule, 1 CAP PO DAILY, (Reported) Entered as Reported by: SHRAVAN BRIDGES on 11/28/191610 Metformin HCl (Metformin HCl ER) 500 Mg Tab.er.24h, 500 MG PO BID, (Reported) Entered as Reported by: SHRAVAN BRIDGES on 11/28/191610 [place]-3/Dha/Epa/Fish Oil (Fish Oil 1,000 mg Softgel) 1 Each Capsule, 2,000 MG PO DAILY, (Reported) Entered as Reported by: SHRAVAN BRIDGES on 11/28/191610 Omeprazole (Omeprazole) 20 Mg Tablet.dr, 20 MG PO DAILY, (Reported) Entered as Reported by: SHRAVAN BRIDGES on 11/28/191610 Pregabalin (Lyrica) 75 Mg Capsule, 75 MG PO TID, (Reported) Entered as Reported by: SHRAVAN BRIDGES on 11/28/191610 Rosuvastatin Calcium (Crestor) 40 Mg Tablet, 40 MG PO DAILY, (Reported) Entered as Reported by: SHRAVAN BRIDGES on 11/28/191610 Past Ziypljg-Acleiw-Qvqcic Hx Patient Social History Tobacco Use?: No Substance use?: No Alcohol Use?: No Immunizations Up To Date Tetanus Booster (TDap): Unknown PED Vaccines UTD: Yes COVID19 Vaccine Food Mixer Assembler: Cloudacc Past Medical History Surgery/Hospitalization HX: HYSTERECTOMY, GALLBLADDER, 2 C SECTIONS Surgeries: Yes Section, Gallbladder, Hysterectomy Respiratory: No Cardiac: No High Cholesterol, Hypertension Neurological: Yes (CHRONIC FATIGUE SYNDROME) Neuropathy Reproductive Disorders: No Bladder Infection Gastrointestinal: Yes Gastroesophageal Reflux, Chronic Constipation Musculoskeletal: Yes (MUSCLE ACHES, CHRONIC FATIQUE SYNDROME) Arthritis Endocrine: No Diabetes, Non-Insulin dep Psychosocial: No Integumentary: No Blood Disorders: No Physical Exam Vital Signs Vital Signs - First Documented 08/09/22 07:21 Temp 36.6 Pulse 81 Resp 20 B/P (MAP) 139/88 (105) Pulse Ox 94 O2 Delivery Room Air Height, Weight, BMI Height: 5'3.00" Weight: 220lbs. 0oz. [id number]; 42.00 BMI Method:Stated Progress/Results/Core Measures Results/Orders Lab Results Laboratory Tests Test 08/09/22 08:45 Range/Units White Blood Count 8.4 4.3-11.0 10^3/uL Red Blood Count 4.74 3.80-5.11 10^6/uL Hemoglobin 12.3 11.5-16.0 g/dL Hematocrit 37 35-52 % Mean Corpuscular Volume 79 L 80-99 fL Mean Corpuscular Hemoglobin 26 25-34 pg Mean Corpuscular Hemoglobin Concent 33 32-36 g/dL Red Cell Distribution Width 18.8 H 10.0-14.5 % Platelet Count 305 130-400 10^3/uL Mean Platelet Volume 8.6 L 9.0-12.2 fL Immature Granulocyte % (Auto) 1 % Neutrophils (%) (Auto) 76 H 42-75 % Lymphocytes (%) (Auto) 12 12-44 % Monocytes (%) (Auto) 10 0-12 % Eosinophils (%) (Auto) 1 0-10 % Basophils (%) (Auto) 1 0-10 % Neutrophils # (Auto) 6.4 1.8-7.8 10^3/uL Lymphocytes # (Auto) 1.0 1.0-4.0 10^3/uL Monocytes # (Auto) 0.8 0.0-1.0 10^3/uL Eosinophils # (Auto) 0.1 0.0-0.3 10^3/uL Basophils # (Auto) 0.0 0.0-0.1 10^3/uL Immature Granulocyte # (Auto) 0.0 0.0-0.1 10^3/uL Sodium Level 141 135-145 MMOL/L Potassium Level 3.0 L 3.6-5.0 MMOL/L Chloride Level 99 98-107 MMOL/L Carbon Dioxide Level 27 21-32 MMOL/L Anion Gap 15 H 5-14 MMOL/L Blood Urea Nitrogen 11 7-18 MG/DL Creatinine 0.85 0.60-1.30 MG/DL Estimat Glomerular Filtration Rate 74 BUN/Creatinine Ratio 13 Glucose Level 126 H 70-105 MG/DL Calcium Level 9.4 8.5-10.1 MG/DL C-Reactive Protein High Sensitivity 7.95 H 0.00-0.50 MG/DL My Orders Orders - JULITO SEGURA MD Basic Metabolic Panel (08/09/22 08:22) Cbc With Automated Diff (08/09/22 08:22) Hs C Reactive Protein (08/09/22 08:22) Ed Iv/Invasive Line Start (08/09/22 08:22) Ondansetron Injection (Zofran Injectio (08/09/22 08:30) Ct Neck (Soft Tissue) W (08/09/22 08:22) Potassium Cl 10meq/50ml Ivpb (Kcl 10 Meq (08/09/22 09:30) Ns Iv 1000 Ml (Sodium Chloride 0.9%) (08/09/22 09:20) Iohexol Injection (Omnipaque 350 Mg/Ml 1 (08/09/22 09:30) Received Contrast (Hold Metformin- Contr (08/09/22 09:30) Sodium Chloride Flush (Catheter Flush Sy (08/09/22 09:30) Ns (Ivpb) (Sodium Chloride 0.9% Ivpb Bag (08/09/22 09:30) Clindamycin 900 Mg/50 Ml Ivpb (Cleocin P (08/09/22 11:15) Ketorolac Injection (Toradol Injection) (08/09/22 11:15) Potassium Chloride (Tablet) (Klor Con Ta (08/09/22 11:15) Ondansetron Injection (Zofran Injectio (08/09/22 11:15) Medications Given in ED Current Medications Medications Dose Ordered Sig/Gray Route Start Time Stop Time Status Last Admin Dose Admin Clindamycin Phosphate/Dextrose 50 ml @ 100 mls/hr ONCE ONCE IV 08/09/22 11:15 08/09/22 11:44 DC 08/09/22 11:47 100 MLS/HR Iohexol 75 ml ONCE ONCE IV 08/09/22 09:30 08/09/22 09:31 DC 08/09/22 09:42 75 ML Ketorolac Tromethamine 15 mg ONCE ONCE IVP 08/09/22 11:15 08/09/22 11:16 DC 08/09/22 11:46 15 MG Ondansetron HCl 4 mg ONCE ONCE IVP 08/09/22 08:30 08/09/22 08:31 DC 08/09/22 08:51 4 MG Ondansetron HCl 4 mg ONCE ONCE IVP 08/09/22 11:15 08/09/22 11:16 DC 08/09/22 11:46 4 MG Potassium Chloride 40 meq ONCE ONCE PO 08/09/22 11:15 08/09/22 11:16 DC 08/09/22 11:46 40 MEQ Potassium Chloride 50 ml @ 50 mls/hr ONCE ONCE IV 08/09/22 09:30 08/09/22 10:29 DC 08/09/22 10:02 50 MLS/HR Sodium Chloride 10 ml NEEDED PRN IV 08/09/22 09:30 08/09/22 09:42 10 ML Sodium Chloride 100 ml ONCE ONCE IV 08/09/22 09:30 08/09/22 09:31 DC 08/09/22 09:42 80 ML Vital Signs/I&O 08/09/22 08/09/22 07:21 11:46 Temp 36.6 36.6 Pulse 81 Resp 20 B/P (MAP) 139/88 (105) Pulse Ox 94 O2 Delivery Room Air Blood Pressure Mean: 105 Diagnostic Imaging Diagonstic Imaging: CT Plain Films/CT/US/NM/MRI: other (Soft tissues neck) Comments CT scan viewed by me and report reviewed. See report below: NAME: KRAEN CASTILLO [facility] REC#: [id number] PT STATUS: REG ER : 1955 PHYSICIAN: JULITO SEGURA MD ADMIT DATE: 08/09/22/ER Draft Date of Exam:08/09/22 CT NECK (SOFT TISSUE) W PROCEDURE: CT neck soft tissue with contrast. TECHNIQUE: Multiple contiguous axial images were obtained through the neck after the administration of contrast. Auto Exposure Controls were utilized during the CT exam to meet ALARA standards for radiation dose reduction. INDICATION: Dental/neck abscess. FINDINGS: The visualized intracranial structures are unremarkable. The globes and intraorbital structures are unremarkable. Sinuses and mastoid air cells are clear. The nasopharyngeal, oral pharyngeal and hypopharyngeal tissues are symmetrical without mass effect. The parotid, submandibular and thyroid glands normal in appearance. The lung apices are clear. Major vascular structures of the neck enhance in a normal fashion. There is no dissection stenosis or occlusion. There appear to be codominant vertebral arteries. There is some soft tissue induration and inflammatory change about the body of the mandible on the left. This extends caudally in the submandibular region where there is a 1.6 cm lymph node. There appears to be a missing premolar. There is also some rather diffuse induration along the caudal aspect of the deep lobe of the left parotid gland. No discrete fluid collection is appreciated to suggest abscess. The prevertebral soft tissues are within normal limits. There are some degenerative changes in the cervical spine. Epiglottis is unremarkable. Tongue bases are unremarkable. IMPRESSION: Soft tissue induration and inflammatory change about the body of the mandible on the left. This extends into the deep parotid space caudally as well as down into the anterior left neck. There is a 1.6 cm lymph node in the submental region on the left. No discrete fluid collections appreciated to suggest abscess. There is a missing pre-molar in the left mandible. Dictated on workstation # [id number] Dict: 08/09/22 0947 Trans: 08/09/22 1002 [facility] [id number] Interpreted by: JOVITA GAYLE MD Departure Impression Primary Impression: Dental abscess Additional Impressions: Facial cellulitis Hypokalemia Disposition: 01 HOME, SELF-CARE Condition: Stable Departure-Patient Inst. Decision time for Depature: 12:12 Referrals: ELSIE BROOKS DO (PCP) Primary Care Physician KIARA HERNANDEZ (Family) Primary Care Physician Patient Instructions: Cellulitis (Skin Infection), Adult (DC), Tooth Abscess (DC) Add. Discharge Instructions: Contact your dentist first thing Thursday morning. Until then, continue with amoxicillin plus the clindamycin prescribed from the ER. You should notice gradual improvement over the next several days. The incision in your mouth may continue to drain some blood and/or pus for a day or 2. Use gauze packings as necessary. You may continue using Tylenol and/or ibuprofen for pain. Return to the ER if you have worsening symptoms or develop new symptoms such as fever despite following these instructions. All discharge instructions reviewed with patient and/or family. Voiced understanding. Scripts Clindamycin HCl (Clindamycin HCl) 300 Mg Capsule 300 MG PO QID, #40 CAP Prov: JULITO SEGURA MD 08/09/22 JULITO SEGURA MD Aug 09, 2022 10:16
[2022-08-09] MEDS ORDERED: CLINDAMYCIN 900 MG/50 ML IVPB 50 ML IV ONE (11:15)
[2022-08-09] MEDS ORDERED: KETOROLAC 30 MG/ML VIAL IVP ONE (11:15)
[2022-08-09] MEDS ORDERED: KCL 10 MEQ TAB (MICRO K) PO ONE (11:15)
[2022-08-09] MEDS ORDERED: CLIN-144 PO (12:14)
[2022-08-09 12:21] VITALS: BP 139/88
== END 2022-08-09 12:21 | disposition home or self-care (01) ==
LOC: EDUNIT# 07:02 → ER 07:05
DX: K04.7 Periapical abscess without sinus (principal); L03.211 Cellulitis of face; E87.6 Hypokalemia
CPT/HCPCS: 36415; 70491; 80048; 85025; 86141

== ENCOUNTER 2023-02-16 14:56 | Inpatient (IN) | payer MEDICARE ==
[~2023-02-16] VITALS: Ht 160 cm; Wt 99.9 kg
[~2023-02-16 14:56] MED LIST changes: +CLIN-144 PO
[2023-02-16 17:34] LABS: BASOPHILS # (AUTO) 0.1 10^3/uL (0.0-0.1); BASOPHILS % (AUTO) 1 % (0-10); EOSINOPHILS # (AUTO) 0.3 10^3/uL (0.0-0.3); EOSINOPHILS % (AUTO) 3 % (0-10); HEMATOCRIT 38 % (35-52); HEMOGLOBIN 12.4 g/dL (11.5-16.0); LYMPHOCYTES # (AUTO) 1.8 10^3/uL (1.0-4.0); LYMPHOCYTES % (AUTO) 20 % (12-44); MEAN CORPUSCULAR HEMOGLOBIN 26 pg (25-34); MEAN CORPUSCULAR HGB CONC 33 g/dL (32-36); MEAN CORPUSCULAR VOLUME 79 fL (80-99); MEAN PLATELET VOLUME 8.9 fL (9.0-12.2); MONOCYTES # (AUTO) 0.6 10^3/uL (0.0-1.0); MONOCYTES % (AUTO) 6 % (0-12); NEUTROPHILS # (AUTO) 6.6 10^3/uL (1.8-7.8); NEUTROPHILS % (AUTO) 70 % (42-75); PLATELET COUNT 450 10^3/uL (130-400); WHITE BLOOD COUNT 9.4 10^3/uL (4.3-11.0)
[2023-02-16 17:38] LABS: ALBUMIN 3.8 GM/DL (3.2-4.5); POTASSIUM 3.4 MMOL/L (3.6-5.0)
[2023-02-16 17:39] LABS: CALCIUM 9.2 MG/DL (8.5-10.1)
[2023-02-16 17:41] LABS: TOTAL PROTEIN 6.9 GM/DL (6.4-8.2)
[2023-02-16 17:42] LABS: BILIRUBIN,TOTAL 0.6 MG/DL (0.1-1.0)
[2023-02-16 17:44] LABS: CREATININE SERUM 0.8 MG/DL (0.60-1.30)
--- NOTE | 2023-02-16 17:49 | Diagnostic Imaging Report ---
PROCEDURE: CT head wo r/o stroke. TECHNIQUE: Multiple contiguous axial images were obtained through the brain without the use of intravenous contrast. Auto Exposure Controls were utilized during the CT exam to meet ALARA standards for radiation dose reduction. INDICATION: Facial droop and loss of hearing. CT HEAD: CT images of the head were obtained. FINDINGS: Ventricles and sulci are within normal limits for size. There is no intracranial hemorrhage identified. There is no abnormal mass effect or shift of midline structures. There is dense atherosclerotic calcification within the distal left vertebral artery with mild atherosclerotic calcification of distal internal carotid arteries, bilaterally. There is opacification of right middle ear cavity as well as right mastoid air cells. Possibility of ossicular erosion is not excluded. IMPRESSION: No acute intracranial abnormalities identified. There is abnormal material present within the right middle ear cavity, likely due to otitis media, although clinical correlation is recommended. There is also opacification of right mastoid air cells and clinical correlation. Follow-up study could be performed after course of antibiotic if symptoms persist. Dictated by: Dictated on workstation # [id number]
--- NOTE | 2023-02-16 17:50 | Diagnostic Imaging Report ---
PROCEDURE: CT cervical spine without contrast. TECHNIQUE: Multiple contiguous axial images were obtained through the cervical spine without the use of intravenous contrast. Sagittal and coronal reformations were then performed. Auto Exposure Controls were utilized during the CT exam to meet ALARA standards for radiation dose reduction. INDICATION: 67-year-old female with right facial droop, neck pain, ear pain, and ear swelling. COMPARISONS: None. FINDINGS: The cervical vertebral bodies appear well aligned, and vertebral body heights appear well maintained. There is some loss of disc space height with disc degeneration at C5-C6 and C6-C7. There are some mild hypertrophic facet changes at multiple cervical levels. Cervical vertebral bodies otherwise appear reasonably well aligned, and vertebral body heights appear reasonably well maintained. The prevertebral soft tissue as well as the predental space and relation of the dens to the lateral mass of C1 is unremarkable. Lung apices are clear. Superior mediastinum is unremarkable. IMPRESSION: Some mild age-appropriate cervical spondylosis with multilevel hypertrophic facet changes as well as some endplate sclerosis with broad-based disc osteophyte complexes at several levels. There is no evidence of acute fracture or subluxation. Additional nonemergent findings as described. Dictated by: Dictated on workstation # [id number]
[2023-02-16 17:55] LABS: ERYTHROCYTE SEDIMENTATION RATE 14 MM/HR (0-30)
--- NOTE | 2023-02-16 17:56 | Diagnostic Imaging Report ---
PROCEDURE: CT maxillofacial without contrast. TECHNIQUE: Multiple contiguous axial images were obtained through the facial bones without the use of intravenous contrast. Auto Exposure Controls were utilized during the CT exam to meet ALARA standards for radiation dose reduction. INDICATION: 67-year-old female presents with right ear pain, jaw pain, pain in the back of the head and right-sided facial drooping. COMPARISONS: None FINDINGS: Axial images and sagittal and coronal reconstructions of the facial bones demonstrate an intact mandible. The TMJs are also normal. Maxilla is also unremarkable. There is some minimal mucosal thickening in the floor of the left maxillary sinus. Both ostiomeatal complexes are patent. The nasal septum is midline. The ethmoid air cells, frontal sinuses, and sphenoid sinus are well pneumatized. Orbits including both globes, retro-orbital extraconal, conal and intraconal spaces are normal. Zygomatic arches and pterygoid plates are symmetric. The external auditory meatus as well as both middle ear canals are patent. There is fluid in the right mastoid air cells extending towards the accessory ossicles. IMPRESSION: 1. Fluid in the right mastoid air cells extending towards the middle ear and accessory ossicles. 2. Some mild chronic appearing left maxillary sinus disease. Dictated by: Dictated on workstation # [id number]
[2023-02-16] MEDS ORDERED: methylPREDNISolone 125 MG (Solu-MEDROL) VIAL IVP ONE (18:45)
[2023-02-16] MEDS ORDERED: VANCOMYCIN INJECTION 1,000 MG in NS (IVPB) 250 ML IV ONE (18:45)
[2023-02-16] MEDS ORDERED: PIPERACILLIN SODIUM/TAZOBACTAM 4.5 GM in NS (IVPB) 100 ML IV ONE (18:45)
[2023-02-16] MEDS ORDERED: SCOPOLAMINE 1.5 MG (TRANSDERM-SCOP) PATCH TD ONE (19:15)
[2023-02-16] MEDS: fentaNYL INJ 100 MCG/2 ML AMP IVP ONE ×2 (19:34→21:36)
[2023-02-16] MEDS ORDERED: VANCOMYCIN INJECTION 750 MG in NS (IVPB) 250 ML IV ONE (19:45)
[2023-02-16 21:00] VITALS: BP 152/67
[2023-02-16] MEDS ORDERED: VANCOMYCIN INJECTION 0.1 MG in NS (IVPB) 250 ML IV SCH (21:00)
[2023-02-16] MEDS ORDERED: diphenhydrAMINE 50 MG/ML INJ (BENADRYL) IVP PRN (21:00)
[2023-02-16] MEDS ORDERED: LACTULOSE SYRUP 10GM/15ML (ENULOSE) 30ML UDC PO PRN (21:00)
[2023-02-16] MEDS ORDERED: polyethylene glycoL POWDER 17 GM (MIRALAX) PACK PO PRN (21:00)
[2023-02-16] MEDS ORDERED: ANTACID SUSP 30 ML UDC (MYLANTA) PO PRN (21:00)
[2023-02-16] MEDS ORDERED: cloNIDine 0.1 MG (CATAPRES) TAB PO PRN (21:00)
[2023-02-16] MEDS ORDERED: ENOXAPARIN 40 MG/0.4 ML (LOVENOX) SYR SC SCH (21:00)
[2023-02-16] MEDS ORDERED: LORazepam 0.5 MG (ATIVAN) TABLET PO PRN (21:00)
[2023-02-16] MEDS ORDERED: CALCIUM CARBONATE 500 MG (TUMS) TAB.CHEW PO PRN (21:00)
[2023-02-16] MEDS ORDERED: HYDROmorphone 2 MG/ML VIAL (DILAUDID) IV PRN (21:00)
[2023-02-16] MEDS ORDERED: MILK OF MAGNESIA 400 MG/5 ML 30 ML UDC PO PRN (21:00)
[2023-02-16] MEDS ORDERED: ONDANSETRON 4 MG (ZOFRAN) ORAL DISSOLVE TAB PO PRN (21:00)
[2023-02-16] MEDS ORDERED: BISACODYL 10 MG SUPP (DULCOLAX) PR PRN (21:00)
[2023-02-16] MEDS ORDERED: ONDANSETRON 4 MG/2 ML (SDV) Z0FRAN IV PRN (21:00)
[2023-02-16] MEDS ORDERED: diphenhydrAMINE 25 MG TAB (BENADRYL) PO PRN (21:00)
[2023-02-16] MEDS: inSUlin ASPART (NovoLOG) 1 UNIT/0.01 ML (CHARGE PER UNIT) SC SCH (21:36)
[2023-02-16] MEDS ORDERED: NS IV 1000 ML 1,000 ML ONE (21:46)
[2023-02-16] MEDS: DOCUSATE SODIUM 100 MG (COLACE) CAP PO SCH (21:50)
[2023-02-16] MEDS: SENNOSIDES 8.6 MG (SENOKOT) TAB PO SCH (21:50)
[2023-02-16] MEDS: NS IV 1000 ML 1,000 ML IV SCH (22:34)
[2023-02-16] MEDS: PIPERACILLIN SODIUM/TAZOBACTAM 4.5 GM in NS (IVPB) 100 ML IV SCH (22:34)
[2023-02-16 22:39] VITALS: BP 150/71
[2023-02-16] MEDS ORDERED: RT-ALBUTEROL SULF 2.5 MG/3 ML PRE-MIX VIAL INH PRN (22:45)
[2023-02-17] VITALS (9 sets, daily range): BP systolic 126–147; BP diastolic 50–74
[2023-02-17] MEDS: methylPREDNISolone 40 MG/ML (Solu-MEDROL) VIAL IV SCH ×5 (00:17→23:02)
[2023-02-17] MEDS: MELATONIN 3 MG TABLET PO PRN ×2 (01:32→20:55)
[2023-02-17] MEDS: ACETAMINOPHEN 325 MG TABLET PO PRN ×2 (01:35→20:55)
[2023-02-17 05:26] LABS: BASOPHILS % (AUTO) 0 % (0-10); EOSINOPHILS % (AUTO) 0 % (0-10); HEMATOCRIT 37 % (35-52); LYMPHOCYTES # (AUTO) 0.7 10^3/uL (1.0-4.0); LYMPHOCYTES % (AUTO) 6 % (12-44); MEAN CORPUSCULAR HEMOGLOBIN 25 pg (25-34); MEAN CORPUSCULAR HGB CONC 33 g/dL (32-36); MEAN CORPUSCULAR VOLUME 77 fL (80-99); MEAN PLATELET VOLUME 8.9 fL (9.0-12.2); MONOCYTES # (AUTO) 0.1 10^3/uL (0.0-1.0); MONOCYTES % (AUTO) 1 % (0-12); NEUTROPHILS # (AUTO) 10.4 10^3/uL (1.8-7.8); NEUTROPHILS % (AUTO) 92 % (42-75); PLATELET COUNT 441 10^3/uL (130-400); WHITE BLOOD COUNT 11.3 10^3/uL (4.3-11.0)
[2023-02-17 05:51] LABS: ALBUMIN 3.7 GM/DL (3.2-4.5); BILIRUBIN,TOTAL 0.6 MG/DL (0.1-1.0); CREATININE SERUM 0.8 MG/DL (0.60-1.30); POTASSIUM 3.2 MMOL/L (3.6-5.0); TOTAL PROTEIN 6.5 GM/DL (6.4-8.2)
[2023-02-17] MEDS: inSUlin ASPART (NovoLOG) 1 UNIT/0.01 ML (CHARGE PER UNIT) SC SCH ×4 (05:54→20:55)
[2023-02-17] MEDS: PIPERACILLIN SODIUM/TAZOBACTAM 4.5 GM in NS (IVPB) 100 ML IV SCH ×3 (06:10→20:56)
[2023-02-17 06:27] LABS: ANISOCYTOSIS SLIGHT; LYMPHOCYTES % (MANUAL) 8 %; NEUTROPHILS % (MANUAL) 92 %
[2023-02-17] MEDS: VANCOMYCIN 750 MG/NS 250 ML IVPB IV SCH ×4 (08:00→20:54)
[2023-02-17] MEDS: DOCUSATE SODIUM 100 MG (COLACE) CAP PO SCH ×2 (08:00→20:55)
[2023-02-17] MEDS: SENNOSIDES 8.6 MG (SENOKOT) TAB PO SCH ×2 (08:00→20:56)
[2023-02-17] MEDS: KCL 20 MEQ TAB (K-DUR) PO SCH (09:53)
[2023-02-17] MEDS: PREGABALIN 100 MG (LYRICA) CAPSULE PO SCH ×3 (09:53→20:55)
[2023-02-17] MEDS ORDERED: CALC-140 PO (11:23)
[2023-02-17] MEDS ORDERED: SEMA0.25 SQ (11:23)
[2023-02-17] MEDS ORDERED: EMPA1TAB11 PO (11:23)
[2023-02-17] MEDS ORDERED: IBUP-2185 PO (11:23)
[2023-02-17] MEDS ORDERED: CHOL10004 PO (11:23)
[2023-02-17] MEDS ORDERED: MULT-1136 PO (11:23)
[2023-02-17] MEDS ORDERED: PREG100C55 PO (11:23)
--- NOTE | 2023-02-17 14:20 | History & Physical-Hospitalist ---
JESSICAMICHELLE 02/17/23 1420: History of Present Illness HPI/Chief Complaint [place] is a 67 yo F w/ a hx of HTN, HLD who presented 02/16 to the ED with se kenneth R ear, jaw, and neck pain, and R facial droop. [place] states that her recently got over a URI and 3 weeks ago she began to have similar symptoms. She got better but developed an ear ache shortly after. She states this happens often when she gets sick, and she used to get infections from swimmers ear often as a child. She was placed on two different antibiotics, one was amoxicillin she says, but it did not get better. 2 days ago the swelling in her ear and jaw worsened and she started to have R facial droop. In ED, CTH revealed inflammation of mastoid air cells, and she was started on Vanc, zosyn, and methylpredisone. This AM she is feeling much better. She says the swelling has gone down significantly after the steroids, and she has minimal pain now. She says she has never experienced facial droop from an ear ache before. Source: patient Date Seen 02/17/23 Time Seen by a Provider: 09:00 Attending Physician Kristen Lew Aprn PCP Admitting Physician: Aida Gutierres DO Attending Physician: Aida Gutierres DO Referring Physician Date of Admission Feb 16, 2023 at 20:38 Home Medications & Allergies Home Medications Reviewed patient Home Medication Reconciliation performed by pharmacy medication reconciliations distance learning technician and/or nursing. Patients Allergies have been reviewed. Allergies Allergies Coded Allergies morphine (Unverified Allergy, Unknown, NAUSEA, 02/21/19) Past Nodqgcj-Jeenek-Feqatr Hx Patient Social History Marrital Status: Tobacco Use?: No Smoking Status: Never a Smoker Smokeless Tobacco Frequency: Never a User Use of E-Cig and/or Vaping dev: No Substance use?: No Alcohol Use?: No Pt feels they are or have been: No Immunizations Up To Date Date of Influenza Vaccine: Aug 19, 2022 First/Initial COVID19 Vaccinat: 06/2022 Second COVID19 Vaccination Alphonse: 06/2022 Tetanus Booster (TDap): Unknown PED Vaccines UTD: Yes Date of Pneumonia Vaccine: Aug 10, 2019 Current Status status: No status: No Advance Directives: No Communicates: Verbally Primary Language: [place]ian Preferred Spoken Language: Burundian Is interpretation needed?: No Implanted or Applied Medical D: None Past Medical History Surgeries: Section, Gallbladder, Hysterectomy High Cholesterol, Hypertension Neuropathy Bladder Infection Gastroesophageal Reflux, Chronic Constipation Arthritis Diabetes, Non-Insulin dep Blood Disorders: No Family Medical History No Pertinent Family Hx Review of Systems Constitutional: No chills, No fever EENTM: hearing loss, ear pain; No blurred vision Respiratory: No cough, No short of breath Cardiovascular: No chest pain, No edema, No palpitations Gastrointestinal: No abdominal pain, No diarrhea Musculoskeletal: No joint pain, No muscle pain; neck pain Skin: no symptoms reported Psychiatric/Neurological: No Symptoms Reported Physical Exam Physical Exam Vital Signs Vital Signs - First Documented 02/16/23 02/16/23 15:35 22:39 Temp 36.8 Pulse 74 Resp 18 B/P (MAP) 150/71 (97) Pulse Ox 97 O2 Delivery Room Air FiO2 21 Capillary Refill : Less Than 3 Seconds Height, Weight, BMI Height: 5'3.00" Weight: 220lbs. 0oz. 99.654446cv; 39.02 BMI Method:Stated General Appearance: No Apparent Distress Eyes: Bilateral Eye Normal Inspection, Bilateral Eye PERRL, Bilateral Eye EOMI HEENT: PERRL/EOMI; No Photophobia, No Scleral Icterus (L), No Scleral Icterus (R) Neck: Non Tender, Supple; No JVD; Lymphadenopathy (R) Respiratory: Lungs Clear, Normal Breath Sounds, No Accessory Muscle Use, No Respiratory Distress Cardiovascular: Regular Rate, Rhythm, No JVD, No Murmur, Normal Peripheral Pulses Gastrointestinal: Non Tender, Soft; No Distended Extremity: Normal Capillary Refill, Non Tender, No Calf Tenderness, No Pedal Edema Neurologic/Psychiatric: Alert, Oriented x3, No Motor/Sensory Deficits, Normal Mood/Affect, cellular biologist II-XII Norm as Tested (R facial droop including upper forehead) Reflexes: 2+ Bicep (R), 2+ Bicep (L), 2+ Knee (R), 2+ Knee (L) Skin: Normal Color, Warm/Dry Results Results/Procedures Labs Laboratory Tests 02/16/23 17:18 02/17/23 04:46 Patient resulted labs reviewed. Imaging: Reviewed Imaging Report Assessment/Plan Admission Diagnosis Mastoiditis R facial nerve palsy Admission Status: Inpatient Order (span 2 midnights) Reason for Inpatient Admission: mastoiditis Assessment and Plan Mastoiditis R facial nerve palsy -CT[facility] reviewed -started on vanc, zosyn, steroids -reduced swelling today -involvement of R upper face rules out stroke Hyperglycemia -likely reactive from high dose steroids -SSI DVT ppx: lovenox Dispo: holding in icu for now, consider transfer to floor tomorrow AIDA GUTIERRES DO 02/18/23 0520: History of Present Illness Source: patient Past Twzwfba-Nedhqi-Cnsmry Hx Patient Social History Marrital Status: Employed/Student: retired Review of Systems Constitutional: see HPI Assessment/Plan Admission Diagnosis Admission Status: Inpatient Order (span 2 midnights) Reason for Inpatient Admission: sepsis Supervisory-Addendum Brief Verification & Attestation Participated in pt care: history, MDM, physical Personally performed: exam, history, MDM, supervision of care Care discussed with: Medical Student Procedures: n/a Results interpretation: Verified all documentation Verification and Attestation of Medical Student E/M Service A medical student performed and documented this service in my presence. I reviewed and verified all information documented by the medical student and made modifications to such information, when appropriate. I personally performed the physical exam and medical decision making. Aida Gutierres Feb 18, 2023,05:19 MICHELLE LOPEZ Feb 17, 2023 14:20 AIDA GUTIERRES DO Feb 18, 2023 05:20
[2023-02-17] MEDS: NS IV 1000 ML 1,000 ML IV SCH (17:23)
[2023-02-17] MEDS: ENOXAPARIN 40 MG/0.4 ML (LOVENOX) SYR SC SCH (23:02)
[2023-02-18 03:37] VITALS: BP 121/68
[2023-02-18] MEDS: NS IV 1000 ML 1,000 ML IV SCH ×2 (05:12→19:39)
[2023-02-18] MEDS: PIPERACILLIN SODIUM/TAZOBACTAM 4.5 GM in NS (IVPB) 100 ML IV SCH ×3 (05:12→21:25)
[2023-02-18] MEDS: methylPREDNISolone 40 MG/ML (Solu-MEDROL) VIAL IV SCH ×2 (05:12→19:39)
[2023-02-18] MEDS: ACETAMINOPHEN 325 MG TABLET PO PRN ×2 (05:13→21:24)
[2023-02-18] MEDS: inSUlin ASPART (NovoLOG) 1 UNIT/0.01 ML (CHARGE PER UNIT) SC SCH ×4 (05:28→20:24)
[2023-02-18 05:51] LABS: BASOPHILS % (AUTO) 0 % (0-10); EOSINOPHILS % (AUTO) 0 % (0-10); HEMATOCRIT 34 % (35-52); HEMOGLOBIN 11.1 g/dL (11.5-16.0); LYMPHOCYTES # (AUTO) 0.9 10^3/uL (1.0-4.0); LYMPHOCYTES % (AUTO) 6 % (12-44); MEAN CORPUSCULAR HEMOGLOBIN 26 pg (25-34); MEAN CORPUSCULAR HGB CONC 33 g/dL (32-36); MEAN CORPUSCULAR VOLUME 79 fL (80-99); MEAN PLATELET VOLUME 8.9 fL (9.0-12.2); MONOCYTES # (AUTO) 0.4 10^3/uL (0.0-1.0); MONOCYTES % (AUTO) 3 % (0-12); NEUTROPHILS # (AUTO) 14.2 10^3/uL (1.8-7.8); NEUTROPHILS % (AUTO) 91 % (42-75); PLATELET COUNT 441 10^3/uL (130-400); WHITE BLOOD COUNT 15.7 10^3/uL (4.3-11.0)
[2023-02-18 06:04] LABS: ALBUMIN 3.5 GM/DL (3.2-4.5); POTASSIUM 3.5 MMOL/L (3.6-5.0)
[2023-02-18] MEDS: KCL 20 MEQ TAB (K-DUR) PO SCH (06:04)
[2023-02-18 06:05] LABS: CALCIUM 8.7 MG/DL (8.5-10.1)
[2023-02-18 06:06] LABS: TOTAL PROTEIN 6.1 GM/DL (6.4-8.2)
[2023-02-18 06:08] LABS: BILIRUBIN,TOTAL 0.6 MG/DL (0.1-1.0)
[2023-02-18 06:10] LABS: CREATININE SERUM 0.79 MG/DL (0.60-1.30)
[2023-02-18] MEDS ORDERED: TROUGH ORDER-PHARMACY XX NR (08:00)
[2023-02-18] MEDS: DOCUSATE SODIUM 100 MG (COLACE) CAP PO SCH ×2 (08:23→19:39)
[2023-02-18] MEDS: SENNOSIDES 8.6 MG (SENOKOT) TAB PO SCH ×2 (08:23→19:39)
[2023-02-18] MEDS: PREGABALIN 100 MG (LYRICA) CAPSULE PO SCH ×3 (08:23→19:39)
[2023-02-18 08:37] VITALS: BP 137/60
[2023-02-18] MEDS ORDERED: CALCIUM CARBONATE 500 MG (TUMS) TAB.CHEW PO PRN (10:45)
[2023-02-18] MEDS ORDERED: PANTOPRAZOLE 40 MG (PROTONIX) TAB PO NR (11:00)
--- NOTE | 2023-02-18 11:21 | Progress Note - Hospitalist ---
MICHELLE LOPEZ 02/18/23 1121: Subjective HPI/CC On Admission Date Seen by Provider: Feb 18, 2023 Time Seen by Provider: 10:00 Subjective/Events-last exam America is feeling better today. She says the swelling is down and she is not having any pain. She says she can still hear out of her R ear but cannot move her R face. She denies fever/chills, weakness, pain, but endorses a cough. She says it is nonproductive and says she has an issue with acid reflux. Review of Systems General: No Chills HEENT: No Head Aches, No Visual Changes, No Eye Pain Pulmonary: Cough Cardiovascular: No: Chest Pain Gastrointestinal: No: Nausea, Vomiting Objective Exam Vital Signs Vital Signs Date Time Temp Pulse Resp B/P (MAP) Pulse Ox O2 Delivery O2 Flow Rate FiO2 02/18/23 08:37 36.6 79 18 137/60 (85) 95 Room Air 02/16/23 22:39 21 Capillary Refill : Less Than 3 Seconds General Appearance: No Apparent Distress HEENT: PERRL/EOMI, Moist Mucous Membranes; No Scleral Icterus (L), No Scleral Icterus (R); Other (swelling improved from yesterday) Neck: Non Tender, Supple Respiratory: Lungs Clear, Normal Breath Sounds, No Respiratory Distress Cardiovascular: Regular Rate, Rhythm, No JVD, No Murmur, Normal Peripheral Pulses Gastrointestinal: Non Tender, Soft; No Distended Extremity: Normal Capillary Refill, Normal Inspection Neurologic/Psychiatric: Alert, Oriented x3, Normal Mood/Affect, Other (R facial droop and weakness w/o sparing of forehead. No sensory deficits, moves all extremities spontaneously. Hearng normal in R ear.) Skin: Normal Color, Warm/Dry Results/Procedures Lab Laboratory Tests 02/18/23 05:27 Patient resulted labs reviewed. Imaging: Reviewed Imaging Report Assessment/Plan Assessment and Plan Assess & Plan/Chief Complaint Mastoiditis R facial nerve palsy -CTH reviewed -started on vanc, zosyn, steroids -reduced swelling today -involvement of R upper face rules out stroke -tapering steroids -regain of R facial motor function with time Cough GERD -cough nonproductive, lungs clear -likely gerd related -ppi DVT ppx: lovenox AIDA PATRICK DO 02/19/23 6804: Supervisory-Addendum Brief Verification & Attestation Participated in pt care: history, MDM, physical Personally performed: exam, history, MDM, supervision of care Care discussed with: Medical Student Procedures: n/a Results interpretation: Verified all documentation Verification and Attestation of Medical Student E/M Service A medical student performed and documented this service in my presence. I reviewed and verified all information documented by the medical student and made modifications to such information, when appropriate. I personally performed the physical exam and medical decision making. Aida Patrick, Feb 19, 2023,04:54 MICHELLE LOPEZ Feb 18, 2023 11:21 AIDA PATRICK DO Feb 19, 2023 04:54
[2023-02-18 11:55] VITALS: BP 129/62
[2023-02-18] MEDS: VANCOMYCIN 750 MG/NS 250 ML IVPB IV SCH ×4 (12:08→20:20)
[2023-02-18 16:23] VITALS: BP 121/57
--- NOTE | 2023-02-18 18:01 | ED General ---
General Chief Complaint: Ear Problems Stated Complaint: MASTOIDITIS Nursing Triage Note: PT AMB TO TRIAGE CO OF R EAR PAIN AND UNABLE TO HEAR, STATES HURTS IN JAW, EYE, EAR, BACK OF HEAD AND R SIDED FACIAL DROOPING. STATES FEELS TERRIBLE, STARTED APPROX 1 MONTH AGO. FACIAL DROOPING STARTED 2 DAYS AGO, HAS BEEN TREATED W 2 DIFFERENT ANTIBIOTICS BY [facility]. HAS BEEN GOING ON FOR APPROX 1 MONTH. RATES PAIN6/10. FACE AND EAR SWOLLEN. Nursing Sepsis Screen: No Definite Risk Source of Information: Patient History of Present Illness Date Seen by Provider: Feb 16, 2023 Time Seen by Provider: 17:00 Initial Comments PT ARRIVES VIA POV SHE STATES TO ME THAT SHE BEGAN GETTING SICK ON January, WITH COUGH, CONGESTION, RUNNY NOSE, RIGHT EYE WATERING SHE HAD SUBJECTIVE FEVER AT THE ONSET OF THOSE SYMPTOMS, SHE DOES NOT THINK SHE HAS HAD FEVER FOR THE LAST WEEK SHE WAS Allergies and Home Medications Allergies Coded Allergies: morphine (Unverified Allergy, Unknown, NAUSEA, 02/21/19) Patient Home Medication List Calcium Carbonate/Vitamin D3 (Calcium + Vitamin D Tablet) 600 Mg Calcium-5 Mcg (200 Unit) Tablet, 2 EACH PO DAILY, (Reported) Entered as Reported by: RADHA ROLLINS on 02/17/231122 Last Action: Reviewed Cholecalciferol (Vitamin D3) (Vitamin D3) 25 Mcg (1000 Unit) Tablet, 25 MCG PO DAILY, (Reported) Entered as Reported by: RADHA ROLLINS on 02/17/231122 Last Action: Reviewed Empagliflozin/Metformin HCl (Synjardy 12.5-500 mg Tablet) 12.5 Mg-500 Mg Tablet, 1 EACH PO BID WITH MEALS, (Reported) Entered as Reported by: RADHA ROLLINS on 02/17/231122 Last Action: Reviewed Hydrochlorothiazide (Hydrochlorothiazide) 50 Mg Tablet, 25 MG PO DAILY, (Reported) Entered as Reported by: SHRAVAN BRIDGES on 11/28/19 1611 Last Action: Reviewed Ibuprofen (Ibuprofen) 200 Mg Capsule, 600 MG PO Q8H PRN for PAIN-MILD (1-4), (Reported) Entered as Reported by: RADHA ROLLINS on 02/17/231122 Last Action: Reviewed L.acidoph & Paracasei,B.lactis (Probiotic) 1 Each Capsule, 1 CAP PO DAILY, (Reported) Entered as Reported by: SHRAVAN BRIDGES on 11/28/191610 Last Action: Reviewed Multivitamin (Multivitamin) 1 Each Tablet, 1 EACH PO DAILY, (Reported) Entered as Reported by: RADHA ROLLINS on 02/17/231122 Last Action: Reviewed Pregabalin (Pregabalin) 100 Mg Capsule, 100 MG PO TID, (Reported) Entered as Reported by: RADHA ROLLINS on 02/17/231122 Last Action: Reviewed Rosuvastatin Calcium (Crestor) 40 Mg Tablet, 40 MG PO DAILY, (Reported) Entered as Reported by: SHRAVAN BRIDGES on 11/28/191610 Last Action: Reviewed Semaglutide (Ozempic) 0.25 Mg/0.2 Ml Pen.injctr, 0.25 MG SQ WEEK, (Reported) Entered as Reported by: RADHA ROLLINS on 02/17/231122 Last Action: Reviewed Discontinued Medications Aspirin (Aspirin EC) 81 Mg Tablet.dr, 81 MG PO DAILY, (Reported) Discontinued Reason: No Longer Taking Entered as Reported by: SHRAVAN BRIDGES on 11/28/191610 Last Action: Discontinued Azithromycin (Zithromax) 250 Mg Tablet, 250 MG PO DAILY Discontinued Reason: No Longer Taking Prescribed by: SASHA PATRICK on 11/29/191104 Last Action: Discontinued Benzonatate (Tessalon Perle) 100 Mg Capsule, 100 MG PO Q6H Discontinued Reason: No Longer Taking Prescribed by: SASHA PATRICK on 11/29/191104 Last Action: Discontinued Calcium Carb/Mag Ox/Zinc Sulf (Pkeygfv-Slbpydvlo-Zfar Tablet) 1 Each Tablet, 3 TAB PO DAILY, (Reported) Discontinued Reason: No Longer Taking Entered as Reported by: SHRAVAN BRIDGES on 11/28/191610 Last Action: Discontinued Cefdinir (Cefdinir) 300 Mg Capsule, 300 MG PO BID Discontinued Reason: No Longer Taking Prescribed by: SASHA PATRICK on 11/29/191104 Last Action: Discontinued Cholecalciferol (Vitamin D3) (Vitamin D3) 1,000 Unit Tablet, 2,000 UNIT PO DAILY, (Reported) Discontinued Reason: No Longer Taking Entered as Reported by: SHRAVAN BRIDGES on 11/28/191610 Last Action: Discontinued Clindamycin HCl (Clindamycin HCl) 300 Mg Capsule, 300 MG PO QID Discontinued Reason: No Longer Taking Prescribed by: JULITO OLIVEROS on 08/09/22 1214 Last Action: Discontinued Cyanocobalamin (Vitamin B-12) (Vitamin B-12) 1,000 Mcg Tablet, 1,000 MCG PO DAILY, (Reported) Discontinued Reason: No Longer Taking Entered as Reported by: SHRAVAN BRIDGES on 11/28/191610 Last Action: Discontinued Metformin HCl (Metformin HCl ER) 500 Mg Tab.er.24h, 500 MG PO BID, (Reported) Discontinued Reason: No Longer Taking Entered as Reported by: SHRAVAN BRIDGES on 11/28/191610 Last Action: Discontinued [place]-3/Dha/Epa/Fish Oil (Fish Oil 1,000 mg Softgel) 1 Each Capsule, 2,000 MG PO DAILY, (Reported) Discontinued Reason: No Longer Taking Entered as Reported by: SHRAVAN BRIGDES on 11/28/191610 Last Action: Discontinued Omeprazole (Omeprazole) 20 Mg Tablet.dr, 20 MG PO DAILY, (Reported) Discontinued Reason: No Longer Taking Entered as Reported by: SHRAVAN BRIDGES on 11/28/191610 Last Action: Discontinued Pregabalin (Lyrica) 75 Mg Capsule, 75 MG PO TID, (Reported) Discontinued Reason: No Longer Taking Entered as Reported by: SHRAVAN BRIDGES on 11/28/191610 Last Action: Discontinued Past Bugoonl-Ogpkbj-Vvlzap Hx Patient Social History Tobacco Use?: No Smoking Status: Never a Smoker Smokeless Tobacco Frequency: Never a User Use of E-Cig and/or Vaping dev: No Substance use?: No Alcohol Use?: No Pt feels they are or have been: No Immunizations Up To Date Tetanus Booster (TDap): Unknown PED Vaccines UTD: Yes Influenza Vaccine Up-to-Date: Yes; Up-to-Date First/Initial COVID19 Vaccinat: 06/2022 Second COVID19 Vaccination Alphonse: 06/2022 Third COVID19 Vaccination Date: 06/2022 Past Medical History Surgery/Hospitalization HX: HYSTERECTOMY, GALLBLADDER, 2 C SECTIONS, ELEVATED CHOL, DIABETES, FLUID PILL, GERD, Surgeries: Yes Section, Gallbladder, Hysterectomy Respiratory: No Cardiac: No High Cholesterol, Hypertension Neurological: Yes (CHRONIC FATIGUE SYNDROME) Neuropathy Reproductive Disorders: No Bladder Infection Gastrointestinal: Yes Gastroesophageal Reflux, Chronic Constipation Musculoskeletal: Yes (MUSCLE ACHES, CHRONIC FATIQUE SYNDROME) Arthritis Endocrine: Yes Diabetes, Non-Insulin dep HEENT: No Cancer: No Psychosocial: No Integumentary: No Blood Disorders: No Family Medical History No Pertinent Family Hx Physical Exam Vital Signs Vital Signs - First Documented 02/16/23 15:35 Temp 36.8 Pulse 74 Resp 18 B/P (MAP) 150/71 (97) Pulse Ox 97 O2 Delivery Room Air Capillary Refill : Less Than 3 Seconds Height, Weight, BMI Height: 5'3.00" Weight: 220lbs. 0oz. 99.050763nc; 39.02 BMI Method:Stated Progress/Results/Core Measures Suspected Sepsis Infection Criteria Present: Documented Infection Sepsis Screen: No Definite Risk SIRS Temperature: Pulse: 54 Respiratory Rate: 18 Laboratory Tests 02/16/23 17:18: White Blood Count 9.4 Blood Pressure 121 /57 Mean: 78 Laboratory Tests 02/16/23 17:18: Creatinine 0.80, Platelet Count 450H, Total Bilirubin 0.6 Results/Orders Lab Results Laboratory Tests Test 02/16/23 17:18 Range/Units White Blood Count 9.4 4.3-11.0 10^3/uL Red Blood Count 4.80 3.80-5.11 10^6/uL Hemoglobin 12.4 11.5-16.0 g/dL Hematocrit 38 35-52 % Mean Corpuscular Volume 79 L 80-99 fL Mean Corpuscular Hemoglobin 26 25-34 pg Mean Corpuscular Hemoglobin Concent 33 32-36 g/dL Red Cell Distribution Width 17.8 H 10.0-14.5 % Platelet Count 450 H 130-400 10^3/uL Mean Platelet Volume 8.9 L 9.0-12.2 fL Immature Granulocyte % (Auto) 0 % Neutrophils (%) (Auto) 70 42-75 % Lymphocytes (%) (Auto) 20 12-44 % Monocytes (%) (Auto) 6 0-12 % Eosinophils (%) (Auto) 3 0-10 % Basophils (%) (Auto) 1 0-10 % Neutrophils # (Auto) 6.6 1.8-7.8 10^3/uL Lymphocytes # (Auto) 1.8 1.0-4.0 10^3/uL Monocytes # (Auto) 0.6 0.0-1.0 10^3/uL Eosinophils # (Auto) 0.3 0.0-0.3 10^3/uL Basophils # (Auto) 0.1 0.0-0.1 10^3/uL Immature Granulocyte # (Auto) 0.0 0.0-0.1 10^3/uL Erythrocyte Sedimentation Rate 14 0-30 MM/HR Sodium Level 137 135-145 MMOL/L Potassium Level 3.4 L 3.6-5.0 MMOL/L Chloride Level 102 98-107 MMOL/L Carbon Dioxide Level 22 21-32 MMOL/L Anion Gap 13 5-14 MMOL/L Blood Urea Nitrogen 17 7-18 MG/DL Creatinine 0.80 0.60-1.30 MG/DL Estimat Glomerular Filtration Rate 80 BUN/Creatinine Ratio 21 Glucose Level 86 70-105 MG/DL Calcium Level 9.2 8.5-10.1 MG/DL Corrected Calcium 9.4 8.5-10.1 MG/DL Magnesium Level 2.0 1.6-2.4 MG/DL Total Bilirubin 0.6 0.1-1.0 MG/DL Aspartate Amino Transf (AST/SGOT) 54 H 5-34 U/L Alanine Aminotransferase (ALT/SGPT) 56 H 0-55 U/L Alkaline Phosphatase 86 40-136 U/L C-Reactive Protein High Sensitivity 0.05 0.00-0.50 MG/DL Total Protein 6.9 6.4-8.2 GM/DL Albumin 3.8 3.2-4.5 GM/DL My Orders Orders - ROSA MAGALLANES DO Ed Iv/Invasive Line Start (02/16/23 17:00) Ct Head Wo-R/O Stroke (02/16/23 17:00) Cbc With Automated Diff (02/16/23 17:00) Comprehensive Metabolic Panel (02/16/23 17:00) Hs C Reactive Protein (02/16/23 17:00) Magnesium (02/16/23 17:00) Erythrocyte Sedimentation Rate (02/16/23 17:00) Ct Maxillofacial Wo (02/16/23 17:10) Ct Cervical Spine Wo (02/16/23 17:10) Piperacillin Sodium/Tazobactam (Zosyn Vi (02/16/23 18:45) Vancomycin Injection (Vancomycin Injecti (02/16/23 18:45) Vancomycin Injection (Vancomycin Injecti (02/16/23 19:45) Methylprednisolone Sod Succ (Solu-Medrol (02/16/23 18:45) Ed Admission (Communication) (02/16/23 18:38) Scopolamine Patch (Transderm-Scop Patch) (02/16/23 19:15) Fentanyl Inj (Sublimaze Injection) (02/16/23 19:15) Vital Signs/I&O 02/16/23 02/16/23 15:35 20:01 Temp 36.8 Pulse 74 76 Resp 18 18 B/P (MAP) 150/71 (97) 143/81 Pulse Ox 97 93 O2 Delivery Room Air Room Air Capillary Refill : Less Than 3 Seconds Blood Pressure Mean: 78 Point of Care Testing Finger Stick Blood Glucose: 125 Departure Impression Disposition: 09 ADMITTED INPATIENT Departure-Patient Inst. Referrals: DAVID LANDAVERDE APRN (PCP) Primary Care Physician ROSA MAGALLANES DO Feb 18, 2023 18:01
[2023-02-18] MEDS: MELATONIN 3 MG TABLET PO PRN (19:45)
[2023-02-18 19:57] VITALS: BP 124/57
[2023-02-18 23:23] VITALS: BP 113/54
[2023-02-18] MEDS: ENOXAPARIN 40 MG/0.4 ML (LOVENOX) SYR SC SCH (23:35)
[2023-02-19 03:00] VITALS: BP 105/52
[2023-02-19] MEDS: inSUlin ASPART (NovoLOG) 1 UNIT/0.01 ML (CHARGE PER UNIT) SC SCH ×2 (05:17→11:10)
[2023-02-19 05:54] LABS: BASOPHILS % (AUTO) 0 % (0-10); EOSINOPHILS % (AUTO) 0 % (0-10); HEMATOCRIT 34 % (35-52); HEMOGLOBIN 10.6 g/dL (11.5-16.0); LYMPHOCYTES % (AUTO) 8 % (12-44); MEAN CORPUSCULAR HEMOGLOBIN 25 pg (25-34); MEAN CORPUSCULAR HGB CONC 32 g/dL (32-36); MEAN CORPUSCULAR VOLUME 80 fL (80-99); MONOCYTES # (AUTO) 0.5 10^3/uL (0.0-1.0); MONOCYTES % (AUTO) 4 % (0-12); NEUTROPHILS # (AUTO) 10.2 10^3/uL (1.8-7.8); NEUTROPHILS % (AUTO) 87 % (42-75); PLATELET COUNT 411 10^3/uL (130-400); WHITE BLOOD COUNT 11.7 10^3/uL (4.3-11.0)
[2023-02-19] MEDS: KCL 20 MEQ TAB (K-DUR) PO SCH (05:58)
[2023-02-19] MEDS: PIPERACILLIN SODIUM/TAZOBACTAM 4.5 GM in NS (IVPB) 100 ML IV SCH ×2 (05:59→13:50)
[2023-02-19 06:11] LABS: ALBUMIN 3.3 GM/DL (3.2-4.5)
[2023-02-19 06:12] LABS: POTASSIUM 3.3 MMOL/L (3.6-5.0)
[2023-02-19 06:13] LABS: CALCIUM 8.2 MG/DL (8.5-10.1)
[2023-02-19 06:14] LABS: TOTAL PROTEIN 5.5 GM/DL (6.4-8.2)
[2023-02-19 06:16] LABS: BILIRUBIN,TOTAL 0.6 MG/DL (0.1-1.0)
[2023-02-19 06:18] LABS: CREATININE SERUM 0.8 MG/DL (0.60-1.30)
[2023-02-19 08:09] VITALS: BP 136/64
[2023-02-19] MEDS: methylPREDNISolone 40 MG/ML (Solu-MEDROL) VIAL IV SCH (08:16)
[2023-02-19] MEDS: PREGABALIN 100 MG (LYRICA) CAPSULE PO SCH ×2 (08:16→13:49)
[2023-02-19] MEDS: VANCOMYCIN 750 MG/NS 250 ML IVPB IV SCH ×2 (08:17)
[2023-02-19] MEDS: DOCUSATE SODIUM 100 MG (COLACE) CAP PO SCH (08:17)
[2023-02-19] MEDS: SENNOSIDES 8.6 MG (SENOKOT) TAB PO SCH (08:18)
[2023-02-19] MEDS ORDERED: PANTOPRAZOLE 40 MG (PROTONIX) TAB PO SCH (09:00)
[2023-02-19] MEDS: NS IV 1000 ML 1,000 ML IV SCH (11:08)
[2023-02-19 11:35] VITALS: BP 136/64
[2023-02-19 12:09] VITALS: BP 136/69
[2023-02-19] MEDS ORDERED: PRED10TA22 PO (12:35)
[2023-02-19] MEDS ORDERED: PANT40TA52 PO (12:35)
[2023-02-19] MEDS ORDERED: AMOX1TAB12 PO (12:35)
--- NOTE | 2023-02-19 12:36 | Discharge Summary ---
Discharge Summary Hospital Course Was the Problem List Reviewed?: Yes Problems/Dx: (1) Mastoiditis (2) Mastoiditis (3) Yanes's palsy Hospital Course Date of Admission: Feb 16, 2023 at 20:38 Admission Diagnosis : Family Physician/Provider: Kristen Lew Aprn Date of Discharge: 02/19/23 Discharge Diagnosis: [ ] Hospital Course: Hospital course: America Su is a 67 yo F w/ hx of HTN, HLD who presented 02/16 to the ED with severe R ear, jaw, and neck pain, and R facial droop following an URI 3 weeks ago. CTH revealed inflammation of and accumulation of fluid in mastoid air cells without involvement of surroundng structures. She was placed on IV vanc and zosyn and methylprednisone and admitted. On subsequent hospital days her ear, jaw, and neck pain and swelling continued to improve each day. She had no other deficits and no deficit with hearing. Her R facial nerve palsy continues to be moderate, with sparing of eye closing. She was transitioned to po antibiotics and po steroids for discharge. She is agreeable to follow up outpatient with Dr. Sanchez and understands recovery of R facial nerve could take 3-6 months. MICHELLE LOPEZ Feb 19, 2023 15:35 Labs and Pending Lab Test: Laboratory Tests 02/18/23 16:05: Glucometer 125H 02/18/23 20:21: Glucometer 185H 02/19/23 05:12: Glucometer 149H 02/19/23 05:43: White Blood Count 11.7H, Red Blood Count 4.22, Hemoglobin 10.6L, Hematocrit 34L, Mean Corpuscular Volume 80, Mean Corpuscular Hemoglobin 25, Mean Corpuscular Hemoglobin Concent 32, Red Cell Distribution Width 18.3H, Platelet Count 411H, Mean Platelet Volume 9.0, Immature Granulocyte % (Auto) 1, Neutrophils (%) (Auto) 87H, Lymphocytes (%) (Auto) 8L, Monocytes (%) (Auto) 4, Eosinophils (%) (Auto) 0, Basophils (%) (Auto) 0, Neutrophils # (Auto) 10.2H, Lymphocytes # (Auto) 1.0, Monocytes # (Auto) 0.5, Eosinophils # (Auto) 0.0, Basophils # (Auto) 0.0, Immature Granulocyte # (Auto) 0.1, Sodium Level 142, Potassium Level 3.3L, Chloride Level 112H, Carbon Dioxide Level 23, Anion Gap 7, Blood Urea Nitrogen 19H, Creatinine 0.80, Estimat Glomerular Filtration Rate 80, BUN/Creatinine Ratio 24, Glucose Level 146H, Calcium Level 8.2L, Corrected Calcium 8.8, Total Bilirubin 0.6, Aspartate Amino Transf (AST/SGOT) 97H, Alanine Aminotransferase (ALT/SGPT) 101H, Alkaline Phosphatase 71, Total Protein 5.5L, Albumin 3.3 02/19/23 11:05: Glucometer 131H Home Meds Active Reported Ibuprofen 200 Mg Capsule 600 Mg PO Q8H PRN Vitamin D3 (Cholecalciferol (Vitamin D3)) 25 Mcg (1000 Unit) Tablet 25 Mcg PO DAILY Calcium + Vitamin D Tablet (Calcium Carbonate/Vitamin D3) 600 Mg Calcium-5 Mcg (200 Unit) Tablet 2 Each PO DAILY Multivitamin 1 Each Tablet 1 Each PO DAILY Ozempic (Semaglutide) 0.25 Mg/0.2 Ml Pen.injctr 0.25 Mg SQ WEEK Synjardy 12.5-500 mg Tablet (Empagliflozin/Metformin HCl) 12.5 Mg-500 Mg Tablet 1 Each PO BID WITH MEALS Pregabalin 100 Mg Capsule 100 Mg PO TID Probiotic (L.acidoph & Paracasei,B.lactis) 1 Each Capsule 1 Cap PO DAILY Crestor (Rosuvastatin Calcium) 40 Mg Tablet 40 Mg PO DAILY Hydrochlorothiazide 50 Mg Tablet 25 Mg PO DAILY TAKES 1/2 (50MG) TABLET Assessment/Pt Instructions PCP and Dr Sanchez 1 week Discharge Planning: <30 minutes discharge planning Discharge Instructions Discharge Diet: No Restrictions Discharge Physical Examination Vital Signs Vital Signs Date Time Temp Pulse Resp B/P (MAP) Pulse Ox O2 Delivery O2 Flow Rate FiO2 02/19/23 12:09 36.5 60 18 136/69 (91) 95 Room Air 02/16/23 22:39 21 Allergies: Coded Allergies: morphine (Unverified Allergy, Unknown, NAUSEA, 02/21/19) Discharge Summary Date of Admission Feb 16, 2023 at 20:38 Date of Discharge Discharge Date: Feb 19, 2023 Admission Diagnosis Mastoiditis R facial nerve palsy SASHA PATRICK DO Feb 19, 2023 12:35
--- NOTE | 2023-02-19 15:35 | Progress Note ---
MICHELLE LOPEZ 02/19/23 1535: Progress Note Hospital course: America Su is a 67 yo F w/ hx of HTN, HLD who presented 02/16 to the ED with severe R ear, jaw, and neck pain, and R facial droop following an URI 3 weeks ago. CTH revealed inflammation of and accumulation of fluid in mastoid air cells without involvement of surroundng structures. She was placed on IV vanc and zosyn and methylprednisone and admitted. On subsequent hospital days her ear, jaw, and neck pain and swelling continued to improve each day. She had no other deficits and no deficit with hearing. Her R facial nerve palsy continues to be moderate, with sparing of eye closing. She was transitioned to po antibiotics and po steroids for discharge. She is agreeable to follow up outpatient with Dr. Sanchez and understands recovery of R facial nerve could take 3-6 months. AIDA PATRICK DO 02/20/23 0516: Supervisory-Addendum Brief Verification & Attestation Participated in pt care: history, MDM, physical Personally performed: exam, history, MDM, supervision of care Care discussed with: Medical Student Procedures: n/a Results interpretation: Verified all documentation Verification and Attestation of Medical Student E/M Service A medical student performed and documented this service in my presence. I reviewed and verified all information documented by the medical student and made modifications to such information, when appropriate. I personally performed the physical exam and medical decision making. Aida Patrick Feb 20, 2023,05:16 MICHELLE LOPEZ Feb 19, 2023 15:35 AIDA PATRICK DO Feb 20, 2023 05:16
[2023-02-19 15:41] VITALS: BP 136/69
--- NOTE | 2023-02-19 19:36 | Physician Query Clarification ---
Physician Query-General Query to Physician: Clinical Validation Clarification Dr Cuca Gutierres Sepsis has been documented in the medical record, on the H and P with no further documentation. After study, has Sepsis been ruled out? If it has been ruled out, please document Sepsis ruled out" in the progress notes and/or discharge summary. Yes/Agreed, Sepsis ruled out/is not clinically valid Not agreed, Sepsis has not been ruled out/is clinically valid* *Please document the clinical evidence supportive of this diagnosis (even if now resolved) in the Progress Notes and Discharge Summary Other, with explanation of the clinical findings Clinically undetermined, no explanation for the clinical findings Additional information: to the ED with severe R ear, jaw, and neck pain, and R facial droop, CTH revealed inflammation of mastoid air cells, Admission VS/LABS: HR 74, RR 18, BP 150/71, SpO2 97% sat on room air T 36.8, WBC 9.4, No Lactic acid drawn, Treatment: Zosyn IV, vancomycin IV, methylprednisolone IV In responding to this query, please exercise your independent professional judgment. The purpose of this communication is to more accurately reflect the complexity of your patients condition. The fact that a question is asked does not imply that any particular answer is desired or expected. Thank you for your timely response to this clarification. Brandee Donaldson MSN, RN Clinical Switchboard Inspector [email or web address] PHYSICIAN RESPONSE: Based on the clinical findings in the record, please respond to the query above on this document as an addendum. Physician Response: Physician Response Not agreed, Sepsis has not been ruled out/is clinically valid* If you have questions please contact: Veterinary Assistant: Ext: Thank you for your time and cooperation. Clinical Switchboard Inspector/Veterinary Assistant This is a permanent part of the medical r ecord BRANDEE DONALDSON Feb 19, 2023 19:36 SASHA GUTIERRES DO Feb 19, 2023 20:55
== END 2023-02-19 15:37 | disposition home or self-care (01) | DRG 872 ==
LOC: EDUNIT# 14:56 → ER 14:58 → ICU 20:38 → 4TH 02-17 21:10
PROVIDERS: ADMIT Internal Medicine; ATTEND Internal Medicine
DX: A41.9 Sepsis, unspecified organism (principal); H70.91 Unspecified mastoiditis, right ear; G51.0 Bell's palsy; E11.65 Type 2 diabetes mellitus with hyperglycemia; E11.40 Type 2 diabetes mellitus with diabetic neuropathy, unspecified; I10 Essential (primary) hypertension; E78.00 Pure hypercholesterolemia, unspecified; K21.9 Gastro-esophageal reflux disease without esophagitis; Z79.84 Long term (current) use of oral hypoglycemic drugs; Z79.85 Long-term (current) use of injectable non-insulin antidiabetic drugs; Z79.899 Other long term (current) drug therapy; Z88.5 Allergy status to narcotic agent
CPT/HCPCS: 36415; 70450; 70486; 72125; 80053; 80202; 82947; 83735; 85007; 85025; 85027; 85652; 86141; 94760